=== PATIENT | male | born 1960 | race Caucasian/White ===

== ENCOUNTER 2017-06-09 06:51 | Inpatient (IN) | payer MEDICARE, MEDICAID ==
[~2017-06-09 06:51] MED LIST: Bisacodyl 5 MG Tab PO PRN; Cyclobenzaprine 10 MG Tab PO PRN; Ketorolac 15 MG/ML SDV IVPUSH PRN; Lactated Ringers 1,000 ML IV SCH; Lidocaine 1%/Sod Bicarbonate in NS 8.4% 1 ML Syringe IV PRN; Magnesium Hydroxide 400 MG/5 ML Susp 30 ML Cup PO PRN; Morphine 2 MG/ML Syringe IVPUSH PRN; Naloxone 0.4 MG/ML SDV IVPUSH PRN; Ondansetron 4 MG/2 ML SDV IVPUSH PRN; Sennosides 8.6 MG Tab PO PRN; Sodium Chloride 0.9% 10 ML Syringe FLUSH PRN; diphenhydrAMINE 50 MG/ML SDV IVPUSH PRN
[2017-06-09] MEDS ORDERED: fentaNYL 100 MCG/2 ML SDV ONE (07:31)
[2017-06-09] MEDS ORDERED: Propofol 200 MG/20 ML SDV ONE ×5 (07:31→10:48)
[2017-06-09] MEDS ORDERED: Lidocaine 1% 4 ML ONE (07:32)
[2017-06-09] MEDS ORDERED: Midazolam 1 MG/ML 2 ML SDV ONE ×2 (07:32→08:59)
--- NOTE | 2017-06-09 08:02 | PCM.PREANE ---
Preanesthetic Assessment - Anesthesia/Transfusion/Family Hx Anesthesia History: Prior Anesthesia Without Reaction Family History of Anesthesia Reaction: No Transfusion History: No Prior Transfusion(s) Intubation History: Unknown - Review of Systems General: No Symptoms Pulmonary: No Symptoms, Other (Asthma has not used inhaler in about a month) Cardiovascular: No Symptoms Gastrointestinal: No Symptoms Neurological: Pre-Existing Deficit (OSAGE), Other (Pain in right leg, epidural steroid injection much better now. ) Other: Reports: None (Sleep Apnea with CPAP use.) - Physical Assessment NPO Status Date: 06/09/17 NPO Status Time: 05:10 (Meds with water) Pulse: 87 O2 Sat by Pulse Oximetry: 97 Respiratory Rate: 16 Blood Pressure: 131/84 Temperature: 98.0 C Weight: 92 kg ASA Class: 2 Mental Status: Alert & Oriented x3 Airway Class: Mallampati = 1 Dentition: Reports: Broken Tooth/Teeth (Teeth appear worn down, yellow, grinds teeth.) Thyro-Mental Finger Breadths: 2 Mouth Opening Finger Breadths: 3 ROM/Head Extension: Full Lungs: Clear to Auscultation, Normal Respiratory Effort Cardiovascular: Regular Rate, Regular Rhythm - Lab Values: Laboratory Last Values WBC 6.71 K/mm3 (4.23-9.07) 06/09/17 07:45 RBC 5.20 M/mm3 (4.63-6.08) 06/09/17 07:45 Hgb 15.0 gm/L (13.7-17.5) 06/09/17 07:45 Hct 43.6 % (40.1-51.0) 06/09/17 07:45 MCV 83.8 fl (79.0-92.2) 06/09/17 07:45 MCH 28.8 pg (25.7-32.2) 06/09/17 07:45 MCHC 34.4 g/dl (32.2-35.5) 06/09/17 07:45 RDW Std Deviation 42.2 fL (35.1-43.9) 06/09/17 07:45 Plt Count 309 K/mm3 (163-337) 06/09/17 07:45 MPV 8.6 fl (9.4-12.3) L 06/09/17 07:45 Neut % (Auto) 47.9 % (34.0-67.9) 06/09/17 07:45 Lymph % (Auto) 36.7 % (21.8-53.1) 06/09/17 07:45 [place] % (Auto) 9.5 % (5.3-12.2) 06/09/17 07:45 Eos % (Auto) 5.1 (0.8-7.0) 06/09/17 07:45 Baso % (Auto) 0.7 % (0.1-1.2) 06/09/17 07:45 Neut # (Auto) 3.21 K/mm3 (1.78-5.38) 06/09/17 07:45 Lymph # (Auto) 2.46 K/mm3 (1.32-3.57) 06/09/17 07:45 [place] # (Auto) 0.64 K/mm3 (0.30-0.82) 06/09/17 07:45 Eos # (Auto) 0.34 K/mm3 (0.04-0.54) 06/09/17 07:45 Baso # (Auto) 0.05 K/mm3 (0.01-0.08) 06/09/17 07:45 MRSA (PCR) Negative 05/27/17 11:05 - Allergies Allergies/Adverse Reactions: Allergies Allergy/AdvReac Type Severity Reaction Status Date / Time No Known Allergies Allergy Verified 06/06/17 16:10 PreAnesthesia Questionnaire HEENT History: Reports: Hard of Hearing, Impaired Vision, Other (See Below) Other HEENT History: bilateral impacted cerumen, hearing loss, weras glasses, has hearing aids Cardiovascular History: Reports: High Cholesterol, Hypertension Respiratory History: Reports: Asthma, Sleep Apnea Gastrointestinal History: Reports: None Genitourinary History: Reports: None 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: Reports: 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 Musculoskeletal History: Reports: Other (See Below) Other Musculoskeletal History: left knee pain, restless leg syndrome, left plantar fasciitis, rib sprain Neurological History: Reports: Speech Problems Psychiatric History: Reports: Anxiety, Depression, Other (See Below) Other Psychiatric History: insomnia Endocrine/Metabolic History: Reports: None Hematologic History: Reports: None Immunologic History: Reports: None Oncologic (Cancer) History: Reports: None Dermatologic History: Reports: None - Past Surgical History Head Surgeries/Procedures: Reports: None HEENT Surgical History: Reports: None Cardiovascular Surgical History: Reports: None Respiratory Surgical History: Reports: None GI Surgical History: Reports: Colonoscopy Female Surgical History: Reports: None Male Surgical History: Reports: None Endocrine Surgical History: Reports: None Musculoskeletal Surgical History: Reports: Hip Replacement, Other (See Below) Other Musculoskeletal Surgeries/Procedures:: knee surgery, shoulder surgery Oncologic Surgical History: Reports: None - SUBSTANCE USE Smoking Status *Q: Never Smoker Tobacco Use Within Last Twelve Months:  Second Hand Smoke Exposure: No Recreational Drug Use History: No - HOME MEDS Home Medications: Home Meds Rosuvastatin [Crestor] 10 mg PO DAILY 07/04/15 [History] Lisinopril/Hydrochlorothiazide [Lisinopril-Hctz 20-25 mg Tab] 1 tab PO DAILY [History] Albuterol [Ventolin HFA] 1 - 2 puff INH Q6H PRN 06/06/17 [History] Aspirin [Halfprin] 81 mg PO DAILY 06/06/17 [History] Cholecalciferol (Vitamin D3) [Vitamin D3] 1,000 unit PO DAILY 06/06/17 [History] DULoxetine [Cymbalta] 60 mg PO DAILY 06/06/17 [History] Escitalopram [Lexapro] 20 mg PO DAILY 06/06/17 [History] Fish Oil/[place]-3 Fatty Acids [Fish Oil 1,000 MG] 2 g PO DAILY 06/06/17 [History] Fluticasone Propionate [Flonase] 2 spray NASBOTH DAILY 06/06/17 [History] Multivitamin [Poly-Vitamin] 1 tab PO DAILY 06/06/17 [History] Naproxen [Naproxen] 500 mg PO BID PRN 06/06/17 [History] Pramipexole Di-HCl [Mirapex] 0.25 mg PO BEDTIME 06/06/17 [History] traZODone HCl [Trazodone HCl] 100 mg PO BEDTIME 06/06/17 [History] - CURRENT (IN HOUSE) MEDS Current Meds: Current Medications Bisacodyl (Dulcolax) 5 mg PO DAILY PRN PRN Reason: Constipation Cyclobenzaprine HCl (Flexeril) 10 mg PO TID PRN PRN Reason: Spasms Diphenhydramine HCl (Benadryl) 25 mg IVPUSH Q4H PRN PRN Reason: Nausea Docusate Sodium (Colace) 100 mg PO BID [facility] Famotidine (Pepcid) 20 mg PO Q12H [facility] Lactated Ringer's (Ringers, Lactated) 1,000 mls @ 125 mls/hr IV ASDIRECTED [facility] Cefazolin Sodium/Dextrose 2 gm (/ Premix) 50 mls @ 100 mls/hr IV Q8H [facility] Stop: 06/09/17 23:14 Ketorolac Tromethamine (Toradol) 15 mg IVPUSH Q6H PRN PRN Reason: Pain Lidocaine/Sodium Bicarbonate (Buffered Lidocaine 1% In Ns 8.4%) 0.25 ml IV ONETIME PRN PRN Reason: Prior to IV Start Magnesium Hydroxide (Milk Of Magnesia) 30 ml PO BID PRN PRN Reason: Constipation Morphine Sulfate (Morphine) 2 mg IVPUSH Q2H PRN PRN Reason: Breakthrough Pain Naloxone HCl (Narcan) 0.1 mg IVPUSH Q5M PRN PRN Reason: Oversedation Ondansetron HCl (Zofran) 4 mg IVPUSH Q6H PRN PRN Reason: Nausea/Vomiting Oxycodone/Acetaminophen (Percocet 325-5 Mg) 1 - 2 tab PO Q4H PRN PRN Reason: Pain Rivaroxaban (Xarelto) 10 mg PO DAILY SADIE Senna (Senna) 8.6 mg PO BID PRN PRN Reason: Constipation Sodium Chloride (Saline Flush) 10 ml FLUSH ASDIRECTED PRN PRN Reason: Keep Vein Open Discontinued Medications Morphine Sulfate 8 mg/Epinephrine HCl 0.3 mg/Cefuroxime Sodium 750 mg/Ketorolac Tromethamine 30 mg/Sodium Chloride 27.9 ml 0 mg .XX ONETIME ONE Stop: 06/09/17 06:32 Fentanyl (Sublimaze) Confirm Administered Dose 100 mcg .ROUTE .STK-MED ONE Stop: 06/09/17 07:32 Lidocaine HCl (Xylocaine-Mpf 1%) Confirm Administered Dose 4 mls @ as directed .ROUTE .STK-MED ONE Stop: 06/09/17 07:33 Midazolam HCl (Versed 1 Mg/Ml) Confirm Administered Dose 2 mg .ROUTE .STK-MED ONE Stop: 06/09/17 07:33 Propofol (Diprivan 20 Ml) Confirm Administered Dose 600 mg .ROUTE .STK-MED ONE Stop: 06/09/17 07:32 Propofol (Diprivan 20 Ml) Confirm Administered Dose 200 mg .ROUTE .STK-MED ONE Stop: 06/09/17 07:33
[2017-06-09] MEDS ORDERED: Morphine PF 1 MG/ML Amp ONE (08:32)
[2017-06-09] MEDS ORDERED: Phenylephrine/Normal Saline 100 MCG/ML 10 ML Syringe ONE (09:41)
[2017-06-09] MEDS: Bupivacaine 0.5% 30 ML SDV ONE ×2 (09:41→10:34)
[2017-06-09] MEDS: Iodine/Sodium Iodide 2% Tincture 30 ML Bottle ONE ×2 (09:43→10:17)
[2017-06-09] MEDS: ceFAZolin 1 GM Vial ONE ×2 (09:43→10:19)
[2017-06-09] MEDS: Vancomycin 1 GM SDV ONE ×2 (09:44→10:46)
[2017-06-09] MEDS: Morphine 8 MG, EPINEPHrine 0.3 MG, Cefuroxime 750 MG, Ketorolac 30 MG, Sodium Chloride ... ONE ×10 (09:44→10:35)
[2017-06-09] MEDS ORDERED: diphenhydrAMINE 50 MG/ML SDV IVPUSH PRN (10:04)
[2017-06-09] MEDS ORDERED: fentaNYL 100 MCG/2 ML SDV IVPUSH PRN (10:04)
[2017-06-09] MEDS ORDERED: HYDROmorphone 0.5 MG/0.5 ML Syringe IVPUSH PRN (10:04)
[2017-06-09] MEDS ORDERED: Ondansetron 4 MG/2 ML SDV IVPUSH PRN (10:04)
[2017-06-09] MEDS ORDERED: Lactated Ringers 3,000 ML ONE (11:03)
--- NOTE | 2017-06-09 11:24 | PCM.POSTAN ---
POST ANESTHESIA ASSESSMENT - MENTAL STATUS Mental Status: Alert, Oriented - VITAL SIGNS Pulse Rate: 86 SaO2: 94 Resp Rate: 19 Blood Pressure: 89/68 Temperature: 36.2 C - RESPIRATORY Respiratory Status: Respiratory Rate WNL, Airway Patent, O2 Saturation Stable, Supplemental Oxygen - CARDIOVASCULAR CV Status: Pulse Rate WNL, Blood Pressure Stable - GASTROINTESTINAL GI Status: No Symptoms - PAIN Pain Score: 0 - POST OP HYDRATION Hydration Status: Adequate & Stable
[2017-06-09] MEDS ORDERED: Albuterol 90 MCG/6.7 GM Inhaler INH PRN (11:46)
[2017-06-09] MEDS ORDERED: Albuterol 6.7 GM Inhaler INH PRN (12:15)
--- NOTE | 2017-06-09 12:50 | CR ---
Left knee: AP and lateral views of the left knee were obtained. Comparison: Prior left knee radiograph of 10/07/16. Left knee prosthesis is seen. Components are aligned. Soft tissue tissue air is noted from the surgical procedure. Stable screw is noted within the distal femur. No acute fracture or other abnormality is seen. Impression: 1. Satisfactory appearance of recently placed left knee prosthesis. Diagnostic code #2
[2017-06-09] MEDS: Acetaminophen/oxyCODONE 325-5 MG Tab PO PRN ×2 (16:23→21:03)
[2017-06-09] MEDS: ceFAZolin 2 GM in Premix Bag 1 BAG IV SCH (16:24)
--- NOTE | 2017-06-09 18:49 | PCM.CONS ---
H&P History of Present Illness - General Date of Service: 06/09/17 Admit Problem/Dx: Admission Diagnosis/Problem Admission Diagnosis/Problem Osteoarthritis of knee Source of Information: Patient, RN, RN Notes Reviewed, Other (Surgical notes ) History Limitations: Reports: No Limitations - History of Present Illness Initial Comments - Free Text/Narative: Sohan Padron is a 56 yo male patient of Dr. Smith who is post-operative day 0 of left total knee arthroplasty. Hospital medicine was consulted for post- operative medical care. At this time he is resting comfortably in the chair. Pain is 6/10 but controlled. He denies any chest pain, shortness of breath, palpitations, nausea, or vomiting. He is complaining of post-operative pruritus He carries a history of: Hearing loss, impaired vision, HLD, HTN, asthma, sleep apnea, left knee pain, restless leg syndrome, anxiety, depression , insomnia. He was never a smoker. His code status is full code. His primary care provider is Alyse Espinal, nurse practitioner here at [facility]. Left Knee Pain Score (Numeric/FACES): 6 - Related Data Allergies/Adverse Reactions: Allergies Allergy/AdvReac Type Severity Reaction Status Date / Time No Known Allergies Allergy Verified 06/06/17 16:10 Home Medications: Home Meds Rosuvastatin [Crestor] 10 mg PO DAILY 07/04/15 [History] Lisinopril/Hydrochlorothiazide [Lisinopril-Hctz 20-25 mg Tab] 1 tab PO DAILY [History] Albuterol [Ventolin HFA] 1 - 2 puff INH Q6H PRN 06/06/17 [History] Aspirin [Halfprin] 81 mg PO DAILY 06/06/17 [History] Cholecalciferol (Vitamin D3) [Vitamin D3] 5,000 unit PO DAILY 06/06/17 [History] DULoxetine [Cymbalta] 60 mg PO DAILY 06/06/17 [History] Escitalopram [Lexapro] 20 mg PO DAILY 06/06/17 [History] Fish Oil/[place]-3 Fatty Acids [Fish Oil 1,000 MG] 2 g PO DAILY 06/06/17 [History] Multivitamin [Poly-Vitamin] 1 tab PO DAILY 06/06/17 [History] Naproxen [Naproxen] 500 mg PO BID PRN 06/06/17 [History] Pramipexole Di-HCl [Mirapex] 0.25 mg PO BEDTIME 06/06/17 [History] traZODone HCl [Trazodone HCl] 100 mg PO BEDTIME 06/06/17 [History] Past Medical History HEENT History: Reports: Hard of Hearing, Impaired Vision, Other (See Below) Other HEENT History: bilateral impacted cerumen, hearing loss, weras glasses, has hearing aids Cardiovascular History: Reports: High Cholesterol, Hypertension Respiratory History: Reports: Asthma, Sleep Apnea Gastrointestinal History: Reports: None Genitourinary History: Reports: None 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 Musculoskeletal History: Reports: Other (See Below) Other Musculoskeletal History: left knee pain, restless leg syndrome, left plantar fasciitis, rib sprain Neurological History: Reports: Speech Problems Psychiatric History: Reports: Anxiety, Depression, Other (See Below) Other Psychiatric History: insomnia Endocrine/Metabolic History: Reports: None Hematologic History: Reports: None Immunologic History: Reports: None Oncologic (Cancer) History: Reports: None Dermatologic History: Reports: None - Infectious Disease History Infectious Disease History: Reports: None Other Infectious Disease History: Pt. cannot remember - Past Surgical History HEENT Surgical History: Reports: None Cardiovascular Surgical History: Reports: None Respiratory Surgical History: Reports: None GI Surgical History: Reports: Colonoscopy Male Surgical History: Reports: None Endocrine Surgical History: Reports: None Neurological Surgical History: Reports: None Musculoskeletal Surgical History: Reports: Hip Replacement, Other (See Below) Other Musculoskeletal Surgeries/Procedures:: knee surgery L. , shoulder surgery R. , L. hip replacement Oncologic Surgical History: Reports: None Social & Family History - Family History Family Medical History: Noncontributory - Tobacco Use Smoking Status *Q: Never Smoker Years of Tobacco use: 2 Packs/Tins Daily: 2.5 Used Tobacco, but Quit: Yes Month Tobacco Last Used: unk quit date Second Hand Smoke Exposure: No - Caffeine Use Caffeine Use: Reports: Coffee - Recreational Drug Use Recreational Drug Use: No Recreational Drug Use Frequency: Rarely H&P Review of Systems - Review of Systems: Review Of Systems: See Below General: Reports: No Symptoms. Denies: Fever, Chills, Malaise, Weakness, Fatigue HEENT: Reports: No Symptoms. Denies: Headaches, Hearing Changes, Rhinitis, Post Nasal Drip, Sore Throat, Visual Changes Pulmonary: Reports: No Symptoms. Denies: Shortness of Breath, Wheezing Cardiovascular: Reports: No Symptoms. Denies: Chest Pain, Palpitations, Dyspnea on Exertion Gastrointestinal: Reports: No Symptoms. Denies: Abdominal Pain, Constipation, Diarrhea, Nausea, Vomiting Genitourinary: Reports: No Symptoms. Denies: Dysuria, Frequency, Burning, Pain , Urgency Musculoskeletal: Reports: No Symptoms Skin: Reports: Pruritis. Denies: Cyanosis, Jaundice, Mottled, Rash, Erythema Psychiatric: Reports: No Symptoms Neurological: Reports: No Symptoms Hematologic/Lymphatic: Reports: No Symptoms Immunologic: Reports: No Symptoms Exam - Exam Exam: See Below - Vital Signs Vital Signs: Last Vital Signs Temp 97.6 F 06/09/17 17:30 Pulse 88 06/09/17 14:19 Resp 18 06/09/17 18:00 BP 124/77 06/09/17 17:30 Pulse Ox 96 06/09/17 17:30 Weight: 203 lb - Exam Quality Assessment: DVT Prophylaxis General: Alert, Oriented, Cooperative. No: Mild Distress HEENT: Conjunctiva Clear, EACs Clear, EOMI, Hearing Intact, Mucosa Moist & [place] , Nares Patent, Normal Nasal Septum, Posterior Pharynx Clear, PERRLA Neck: Supple, Trachea Midline. No: JVD, Thyromegaly Lungs: Clear to Auscultation, Normal Respiratory Effort Cardiovascular: Regular Rate GI/Abdominal Exam: Normal Bowel Sounds, Soft, Non-Tender, No Organomegaly, No Distention, No Abnormal Bruit, No Mass, Pelvis Stable (Male) Exam: Deferred Rectal (Males) Exam: Deferred Back Exam: Normal Inspection, Full Range of Motion, NT Extremities: No Pedal Edema, Normal Capillary Refill, Other (ALEX bandage in place on left leg. Bandage is dry and intact. Cooling pack in place.) Peripheral Pulses: 2+: Radial (L), Radial (R), Posterior Tibial (L), Posterior Tibial (R), Dorsalis Pedis (L), Dorsalis Pedis (R) Skin: Warm, Dry, Intact Neurological: Cranial Nerves Intact (Grossly) Neuro Extensive - Mental Status: Alert, Oriented x3, Normal Mood/Affect, Normal Cognition, Memory Intact Neuro Extensive - Motor, Sensory, Reflexes: CN II-XII Intact (Grossly) Psychiatric: Alert, Normal Affect, Normal Mood - Patient Data Lab Results Last 24 hrs: Laboratory Results - last 24 hr 06/09/17 Range/Units 07:45 WBC 6.71 (4.23-9.07) K/mm3 RBC 5.20 (4.63-6.08) M/mm3 Hgb 15.0 (13.7-17.5) gm/L Hct 43.6 (40.1-51.0) % MCV 83.8 (79.0-92.2) fl MCH 28.8 (25.7-32.2) pg MCHC 34.4 (32.2-35.5) g/dl RDW Std Deviation 42.2 (35.1-43.9) fL Plt Count 309 (163-337) K/mm3 MPV 8.6 L (9.4-12.3) fl Neut % (Auto) 47.9 (34.0-67.9) % Lymph % (Auto) 36.7 (21.8-53.1) % [place] % (Auto) 9.5 (5.3-12.2) % Eos % (Auto) 5.1 (0.8-7.0) Baso % (Auto) 0.7 (0.1-1.2) % Neut # (Auto) 3.21 (1.78-5.38) K/mm3 Lymph # (Auto) 2.46 (1.32-3.57) K/mm3 [place] # (Auto) 0.64 (0.30-0.82) K/mm3 Eos # (Auto) 0.34 (0.04-0.54) K/mm3 Baso # (Auto) 0.05 (0.01-0.08) K/mm3 Result Diagrams: 06/09/17 07:45 Consult PN Assessment/Plan POD#: 0 Procedures: Procedures ASSAY OF PREALBUMIN (05/23/17) ASSAY THYROID STIM HORMONE (04/22/17) CHEST X-RAY 2VW FRONTAL&LATL (05/23/17) COMPLETE CBC AUTOMATED (04/22/17) COMPREHEN METABOLIC PANEL (05/23/17) CT SOFT TISSUE NECK W/DYE (12/21/13) EMERGENCY DEPT VISIT (08/27/15) EXTREMITY STUDY (07/04/15) LIPID PANEL (04/22/17) MRI JNT OF LWR EXTRE W/O DYE (01/08/17) OFFICE/OUTPATIENT VISIT EST (08/09/16) PROTHROMBIN TIME (05/23/17) ROUTINE VENIPUNCTURE (05/23/17) STREP A AG IA (08/09/16) THROMBOPLASTIN TIME PARTIAL (05/23/17) URINE CULTURE/COLONY COUNT (06/13/15) X-RAY EXAM HIP UNI 2-3 VIEWS (08/16/16) X-RAY EXAM OF ELBOW (08/16/16) X-RAY EXAM OF KNEE 3 (10/07/16) (1) S/P total knee arthroplasty SNOMED Code(s): 2557898427191, 4694555870874 Code(s): Z96.659 - PRESENCE OF UNSPECIFIED ARTIFICIAL KNEE JOINT Priority: High Current Visit: Yes Qualifiers: Laterality: left Qualified Code(s): Z96.652 - Presence of left artificial knee joint (2) Osteoarthritis SNOMED Code(s): 992129176 Code(s): M19.90 - UNSPECIFIED OSTEOARTHRITIS, UNSPECIFIED SITE Priority: High Current Visit: Yes Qualifiers: Osteoarthritis location: knee Osteoarthritis type: primary Laterality: left Qualified Code(s): M17.12 - Unilateral primary osteoarthritis, left knee (3) HLD (hyperlipidemia) SNOMED Code(s): 56669324 Code(s): E78.5 - HYPERLIPIDEMIA, UNSPECIFIED Priority: Low Current Visit : No Qualifiers: Hyperlipidemia type: unspecified Qualified Code(s): E78.5 - Hyperlipidemia , unspecified (4) HTN (hypertension) SNOMED Code(s): 00182843 Code(s): I10 - ESSENTIAL (PRIMARY) HYPERTENSION Priority: Low Current Visit: Yes Qualifiers: Hypertension type: essential hypertension Qualified Code(s): I10 - Essential (primary) hypertension (5) JODEE (obstructive sleep apnea) SNOMED Code(s): 83939850 Code(s): G47.33 - OBSTRUCTIVE SLEEP APNEA (ADULT) (PEDIATRIC) Priority: Medium Current Visit: Yes (6) Restless leg syndrome SNOMED Code(s): 00322658 Code(s): G25.81 - RESTLESS LEGS SYNDROME Priority: Low Current Visit: Yes (7) Asthma SNOMED Code(s): 769240548 Code(s): J45.909 - UNSPECIFIED ASTHMA, UNCOMPLICATED Priority: Low Current Visit: Yes Qualifiers: Asthma severity: unspecified severity Asthma persistence: intermittent Asthma complication type: unspecified Qualified Code(s): J45.20 - Mild intermittent asthma, uncomplicated (8) Anxiety SNOMED Code(s): 77501826 Code(s): F41.9 - ANXIETY DISORDER, UNSPECIFIED Priority: Low Current Visit: No (9) Depression SNOMED Code(s): 07978036 Code(s): F32.9 - MAJOR DEPRESSIVE DISORDER, SINGLE EPISODE, UNSPECIFIED Priority: Low Current Visit: No Qualifiers: Depression Type: other depression Qualified Code(s): F32.89 - Other specified depressive episodes (10) Insomnia SNOMED Code(s): 387438689 Code(s): G47.00 - INSOMNIA, UNSPECIFIED Priority: Low Current Visit: Yes Qualifiers: Insomnia type: unspecified Qualified Code(s): G47.00 - Insomnia, unspecified Problem List Initiated/Reviewed/Updated: Yes Plan: I/P: Acute: S/P Left total knee arthroplasty - post-operative day 0 -DVT prophylaxis and pain management per primary care team -PT/OT -IS/RT -Monitor oxygen saturation -Titrate oxygen as needed -Vital signs stable Osteoarthritis of Left Knee -Pain management per primary care team Post-operative pruritus- generalized -25mg Benadryl IVP now -monitor Chronic: Hard of hearing Impaired vision Sleep apnea with CPAP use - has here with him HLD HTN - stable Restless leg syndrome Anxiety - stable Depression - stable Plan: SW/CM for discharge planning GI prophylaxis Home medications as indicated Other orders as listed above Routine AM labs He is a full code. His PCP is Alyse Espinal, nurse practitioner here at [facility]. Thank you for allowing us to participate in the care of this patient!! Requesting Provider: Dr. Smith Date Consult Requested: 06/09/17 Reason for Consult: Post-operative medical management Patient History Reviewed: Yes Admission H&P Reviewed: Yes
[2017-06-09] MEDS ORDERED: diphenhydrAMINE 50 MG/ML SDV IVPUSH ONE ×2 (19:14→21:41)
[2017-06-09] MEDS ORDERED: Pramipexole 0.25 MG Tab PO SCH (21:00)
[2017-06-09] MEDS ORDERED: traZODone 50 MG Tab PO SCH (21:00)
[2017-06-09] MEDS: Docusate Sodium 100 MG Cap PO SCH (21:03)
[2017-06-09] MEDS: Famotidine 20 MG Tab PO SCH (21:04)
[2017-06-10] MEDS: ceFAZolin 2 GM in Premix Bag 1 BAG IV SCH ×2 (00:26→10:00)
--- NOTE | 2017-06-10 07:26 | PCM.CONSN ---
- General Info Date of Service: 06/10/17 Admission Dx/Problem (Free Text): Admission Diagnosis/Problem Admission Diagnosis/Problem Osteoarthritis of knee POD #[address] Smith. Doing well, no nausea. Pain under good control. Up and ambulatory with PT this morning. Functional Status: Reports: Pain Controlled, Tolerating Diet, Ambulating, Urinating, Incentive Spirometry - Review of Systems General: Reports: No Symptoms HEENT: Reports: No Symptoms Pulmonary: Reports: No Symptoms Cardiovascular: Reports: No Symptoms Gastrointestinal: Reports: No Symptoms Genitourinary: Reports: No Symptoms Musculoskeletal: Reports: Leg Pain Skin: Reports: No Symptoms Neurological: Reports: No Symptoms Psychiatric: Reports: No Symptoms - Patient Data Vitals - Most Recent: Last Vital Signs Temp 98.8 F 06/09/17 23:14 Pulse 113 H 06/09/17 23:14 Resp 14 06/10/17 03:00 BP 128/81 06/10/17 05:31 Pulse Ox 95 06/09/17 23:14 Weight - Most Recent: 216 lb 6.4 oz I&O - Last 24 Hours: Intake & Output 06/09/17 06/10/17 06/10/17 22:59 06:59 14:59 Intake Total 980 1550 Output Total 150 Balance 830 1550 Lab Results Last 24 Hours: Laboratory Results - last 24 hr 06/09/17 Range/Units 07:45 WBC 6.71 (4.23-9.07) K/mm3 RBC 5.20 (4.63-6.08) M/mm3 Hgb 15.0 (13.7-17.5) gm/L Hct 43.6 (40.1-51.0) % MCV 83.8 (79.0-92.2) fl MCH 28.8 (25.7-32.2) pg MCHC 34.4 (32.2-35.5) g/dl RDW Std Deviation 42.2 (35.1-43.9) fL Plt Count 309 (163-337) K/mm3 MPV 8.6 L (9.4-12.3) fl Neut % (Auto) 47.9 (34.0-67.9) % Lymph % (Auto) 36.7 (21.8-53.1) % [place] % (Auto) 9.5 (5.3-12.2) % Eos % (Auto) 5.1 (0.8-7.0) Baso % (Auto) 0.7 (0.1-1.2) % Neut # (Auto) 3.21 (1.78-5.38) K/mm3 Lymph # (Auto) 2.46 (1.32-3.57) K/mm3 [place] # (Auto) 0.64 (0.30-0.82) K/mm3 Eos # (Auto) 0.34 (0.04-0.54) K/mm3 Baso # (Auto) 0.05 (0.01-0.08) K/mm3 Med Orders - Current: Current Medications Albuterol (Proventil Hfa) 0 gm INH Q6H PRN PRN Reason: Shortness of Breath Bisacodyl (Dulcolax) 5 mg PO DAILY PRN PRN Reason: Constipation Cholecalciferol (Vitamin D3) 5,000 units PO DAILY [facility] Citalopram Hydrobromide (Celexa) 40 mg PO DAILY [facility] Cyclobenzaprine HCl (Flexeril) 10 mg PO TID PRN PRN Reason: Spasms Last Admin: 06/09/17 23:09 Dose: 10 mg Diphenhydramine HCl (Benadryl) 25 mg IVPUSH Q4H PRN PRN Reason: Nausea Last Admin: 06/09/17 19:21 Dose: 25 mg Docusate Sodium (Colace) 100 mg PO BID [facility] Last Admin: 06/09/17 21:03 Dose: 100 mg Duloxetine HCl (Cymbalta) 60 mg PO DAILY [facility] Famotidine (Pepcid) 20 mg PO Q12H [facility] Last Admin: 06/09/17 21:04 Dose: 20 mg Hydrochlorothiazide (Hydrochlorothiazide) 25 mg PO DAILY [facility] Cefazolin Sodium/Dextrose 2 gm (/ Premix) 50 mls @ 100 mls/hr IV Q8H [facility] Stop: 06/10/17 08:59 Last Admin: 06/10/17 00:26 Dose: 100 mls/hr Ketorolac Tromethamine (Toradol) 15 mg IVPUSH Q6H PRN PRN Reason: Pain Lisinopril (Prinivil) 20 mg PO DAILY [facility] Magnesium Hydroxide (Milk Of Magnesia) 30 ml PO BID PRN PRN Reason: Constipation Morphine Sulfate (Morphine) 2 mg IVPUSH Q2H PRN PRN Reason: Breakthrough Pain Naloxone HCl (Narcan) 0.1 mg IVPUSH Q5M PRN PRN Reason: Oversedation Ondansetron HCl (Zofran) 4 mg IVPUSH Q6H PRN PRN Reason: Nausea/Vomiting Oxycodone/Acetaminophen (Percocet 325-5 Mg) 1 - 2 tab PO Q4H PRN PRN Reason: Pain Last Admin: 06/10/17 05:30 Dose: 2 tab Pramipexole Dihydrochloride (Mirapex) 0.25 mg PO BEDTIME [facility] Last Admin: 06/09/17 21:04 Dose: 0.25 mg Rivaroxaban (Xarelto) 10 mg PO DAILY [facility] Rosuvastatin Calcium (Crestor) 10 mg PO DAILY [facility] Senna (Senna) 8.6 mg PO BID PRN PRN Reason: Constipation Sodium Chloride (Saline Flush) 10 ml FLUSH ASDIRECTED PRN PRN Reason: Keep Vein Open Trazodone HCl (Trazodone) 100 mg PO BEDTIME [facility] Last Admin: 06/09/17 21:03 Dose: 100 mg Discontinued Medications Bupivacaine HCl (Marcaine 0.5%) Confirm Administered Dose 30 ml .ROUTE .STK-MED ONE Stop: 06/09/17 08:44 Last Admin: 06/09/17 10:34 Dose: 30 ml Cefazolin Sodium (Ancef) Confirm Administered Dose 2 gm .ROUTE .STK-MED ONE Stop: 06/09/17 08:21 Last Admin: 06/09/17 10:19 Dose: 2 gm Morphine Sulfate 8 mg/Epinephrine HCl 0.3 mg/Cefuroxime Sodium 750 mg/Ketorolac Tromethamine 30 mg/Sodium Chloride 27.9 ml 0 mg .XX ONETIME ONE Stop: 06/09/17 06:32 Last Admin: 06/09/17 10:35 Dose: 788.3 mg Diphenhydramine HCl (Benadryl) 25 mg IVPUSH Q6H PRN PRN Reason: itching Stop: 06/09/17 18:00 Diphenhydramine HCl (Benadryl) 25 mg IVPUSH ONETIME ONE Stop: 06/09/17 19:15 Last Admin: 06/09/17 19:32 Dose: Not Given Diphenhydramine HCl (Benadryl) 25 mg IVPUSH ONETIME ONE Stop: 06/09/17 21:42 Fentanyl (Sublimaze) Confirm Administered Dose 100 mcg .ROUTE .STK-MED ONE Stop: 06/09/17 07:32 Fentanyl (Sublimaze) 50 mcg IVPUSH Q5M PRN PRN Reason: pain Stop: 06/09/17 18:00 Flunisolide (Nasalide Nasal [place]) 0 ml NASBOTH BID [facility]AD[facility] Hydromorphone HCl (Dilaudid) 0.5 mg IVPUSH Q15M PRN PRN Reason: Pain (severe 7-10) Stop: 06/09/17 18:00 Lactated Ringer's (Ringers, Lactated) 1,000 mls @ 125 mls/hr IV ASDIRECTED SADIE Last Admin: 06/09/17 07:42 Dose: 125 mls/hr Lidocaine HCl (Xylocaine-Mpf 1%) Confirm Administered Dose 4 mls @ as directed .ROUTE .STK-MED ONE Stop: 06/09/17 07:33 Lactated Ringer's (Ringers, Lactated) Confirm Administered Dose 3,000 mls @ as directed .ROUTE .STK-MED ONE Stop: 06/09/17 11:04 Iodine (Iodine 2% Mild Tincture) Confirm Administered Dose 30 ml .ROUTE .STK- MED ONE Stop: 06/09/17 08:22 Last Admin: 06/09/17 10:17 Dose: 18 ml Lidocaine/Sodium Bicarbonate (Buffered Lidocaine 1% In Ns 8.4%) 0.25 ml IV ONETIME PRN PRN Reason: Prior to IV Start Last Admin: 06/09/17 07:40 Dose: 0.25 ml Midazolam HCl (Versed 1 Mg/Ml) Confirm Administered Dose 2 mg .ROUTE .STK-MED ONE Stop: 06/09/17 07:33 Midazolam HCl (Versed 1 Mg/Ml) Confirm Administered Dose 2 mg .ROUTE .STK-MED ONE Stop: 06/09/17 09:00 Morphine Sulfate (Duramorph Pf) Confirm Administered Dose 1 mg .ROUTE .STK-MED ONE Stop: 06/09/17 08:33 Ondansetron HCl (Zofran) 4 mg IVPUSH ONETIME PRN PRN Reason: Nausea/Vomiting Stop: 06/09/17 18:00 Phenylephrine HCl (Phenylephrine In Ns 100 Mcg/Ml) Confirm Administered Dose 1 mg .ROUTE .STK-MED ONE Stop: 06/09/17 09:42 Propofol (Diprivan 20 Ml) Confirm Administered Dose 600 mg .ROUTE .STK-MED ONE Stop: 06/09/17 07:32 Propofol (Diprivan 20 Ml) Confirm Administered Dose 200 mg .ROUTE .STK-MED ONE Stop: 06/09/17 07:33 Propofol (Diprivan 20 Ml) Confirm Administered Dose 200 mg .ROUTE .STK-MED ONE Stop: 06/09/17 10:02 Propofol (Diprivan 20 Ml) Confirm Administered Dose 200 mg .ROUTE .STK-MED ONE Stop: 06/09/17 10:35 Propofol (Diprivan 20 Ml) Confirm Administered Dose 200 mg .ROUTE .STK-MED ONE Stop: 06/09/17 10:49 Tranexamic Acid (Cyklokapron) Confirm Administered Dose 1,000 mg .ROUTE .STK- MED ONE Stop: 06/09/17 08:21 Last Admin: 06/09/17 10:45 Dose: 1,000 mg Vancomycin HCl (Vancomycin) Confirm Administered Dose 1 gm .ROUTE .STK-MED ONE Stop: 06/09/17 08:21 Last Admin: 06/09/17 10:46 Dose: 1 gm - Exam Quality Assessment: DVT Prophylaxis General: Alert, Oriented, Cooperative, No Acute Distress HEENT: Pupils Equal, EOMI, Mucous Membr. Moist/[place] Neck: Supple Lungs: Clear to Auscultation, Normal Respiratory Effort Cardiovascular: Regular Rate, Regular Rhythm GI/Abdominal Exam: Normal Bowel Sounds, Soft, Non-Tender (Male) Exam: Deferred Extremities: Other (fidencio wrap to rt knee, ice, CMS + and = bilat to LE) Peripheral Pulses: 1+: Dorsalis Pedis (L), Dorsalis Pedis (R) Neurological: No New Focal Deficit Psy/Mental Status: Alert, Normal Affect, Normal Mood Consult PN Assessment/Plan POD#: 1 Procedures: Procedures ASSAY OF PREALBUMIN (05/23/17) ASSAY THYROID STIM HORMONE (04/22/17) CHEST X-RAY 2VW FRONTAL&LATL (05/23/17) COMPLETE CBC AUTOMATED (04/22/17) COMPREHEN METABOLIC PANEL (05/23/17) CT SOFT TISSUE NECK W/DYE (12/21/13) EMERGENCY DEPT VISIT (08/27/15) EXTREMITY STUDY (07/04/15) LIPID PANEL (04/22/17) MRI JNT OF LWR EXTRE W/O DYE (01/08/17) OFFICE/OUTPATIENT VISIT EST (08/09/16) PROTHROMBIN TIME (05/23/17) ROUTINE VENIPUNCTURE (05/23/17) STREP A AG IA (08/09/16) THROMBOPLASTIN TIME PARTIAL (05/23/17) URINE CULTURE/COLONY COUNT (06/13/15) X-RAY EXAM HIP UNI 2-3 VIEWS (08/16/16) X-RAY EXAM OF ELBOW (08/16/16) X-RAY EXAM OF KNEE 3 (10/07/16) (1) S/P total knee arthroplasty SNOMED Code(s): 5827769151688, 0290042806968 Code(s): Z96.659 - PRESENCE OF UNSPECIFIED ARTIFICIAL KNEE JOINT Priority: High Current Visit: Yes Qualifiers: Laterality: left Qualified Code(s): Z96.652 - Presence of left artificial knee joint (2) Osteoarthritis SNOMED Code(s): 216638485 Code(s): M19.90 - UNSPECIFIED OSTEOARTHRITIS, UNSPECIFIED SITE Priority: High Current Visit: Yes Qualifiers: Osteoarthritis location: knee Osteoarthritis type: primary Laterality: left Qualified Code(s): M17.12 - Unilateral primary osteoarthritis, left knee (3) HLD (hyperlipidemia) SNOMED Code(s): 38002658 Code(s): E78.5 - HYPERLIPIDEMIA, UNSPECIFIED Priority: Low Current Visit : No Qualifiers: Hyperlipidemia type: unspecified Qualified Code(s): E78.5 - Hyperlipidemia , unspecified (4) HTN (hypertension) SNOMED Code(s): 10095296 Code(s): I10 - ESSENTIAL (PRIMARY) HYPERTENSION Priority: Low Current Visit: Yes Qualifiers: Hypertension type: essential hypertension Qualified Code(s): I10 - Essential (primary) hypertension (5) JODEE (obstructive sleep apnea) SNOMED Code(s): 50252371 Code(s): G47.33 - OBSTRUCTIVE SLEEP APNEA (ADULT) (PEDIATRIC) Priority: Medium Current Visit: Yes (6) Restless leg syndrome SNOMED Code(s): 60172718 Code(s): G25.81 - RESTLESS LEGS SYNDROME Priority: Low Current Visit: Yes (7) Asthma SNOMED Code(s): 909089236 Code(s): J45.909 - UNSPECIFIED ASTHMA, UNCOMPLICATED Priority: Low Current Visit: Yes Qualifiers: Asthma severity: unspecified severity Asthma persistence: intermittent Asthma complication type: unspecified Qualified Code(s): J45.20 - Mild intermittent asthma, uncomplicated Problem List Initiated/Reviewed/Updated: Yes Plan: I/P: S/P Left total knee arthroplasty, POD # 1, Dr. Ivy. - Pain management and DVT prophylax - PT/OT - RT/IS - Hgb 15.0 - VSS Chronic conditions: Continue home meds Hypertension, stable Hyperlipidemia Obstructive sleep apnea Insomnia Other: GI Prophylax CM/SW for DC planning--OK to DC home today from Hospitalist standpoint. Patient is full Code status. PCP is CLEO Luis with [facility] in [place]
[2017-06-10] MEDS: Acetaminophen/oxyCODONE 325-5 MG Tab PO PRN ×2 (08:30→16:31)
[2017-06-10] MEDS ORDERED: DULoxetine 30 MG Cap PO SCH (09:00)
[2017-06-10] MEDS ORDERED: Hydrochlorothiazide 25 MG Tab PO SCH (09:00)
[2017-06-10] MEDS ORDERED: Cholecalciferol (Vitamin D3) 1,000 Unit Tab PO SCH (09:00)
[2017-06-10] MEDS ORDERED: Lisinopril 20 MG Tab PO SCH (09:00)
[2017-06-10] MEDS ORDERED: Citalopram 20 MG Tab PO SCH (09:00)
[2017-06-10] MEDS ORDERED: Rosuvastatin 10 MG Tab PO SCH (09:00)
[2017-06-10] MEDS ORDERED: Rivaroxaban 10 MG Tab PO SCH (09:00)
[2017-06-10] MEDS: Docusate Sodium 100 MG Cap PO SCH (09:04)
[2017-06-10] MEDS: Famotidine 20 MG Tab PO SCH (09:05)
[2017-06-10 12:57] VITALS: BP 118/72
--- NOTE | 2017-06-10 14:43 | PCM.SURGPN ---
- General Info Date of Service: 06/10/17 POD#: 1 Functional Status: Reports: Pain Controlled, Tolerating Diet, Ambulating, Urinating, Incentive Spirometry, Other (The pt has met inpatient therapy goals.) - Patient Data Vitals - Most Recent: Last Vital Signs Temp 98.4 F 06/10/17 11:49 Pulse 92 06/10/17 11:49 Resp 16 06/10/17 12:00 BP 118/72 06/10/17 12:00 Pulse Ox 93 L 06/10/17 12:00 Weight - Most Recent: 216 lb 6.4 oz I&O - Last 24 Hours: Intake & Output 06/09/17 06/10/17 06/10/17 22:59 06:59 14:59 Intake Total 980 1550 Output Total 150 Balance 830 1550 Lab Results Last 24 Hrs: Laboratory Results - last 24 hr 06/10/17 06/10/17 Range/Units 07:50 07:50 WBC 9.15 H (4.23-9.07) K/mm3 RBC 3.99 L (4.63-6.08) M/mm3 Hgb 11.5 L (13.7-17.5) gm/L Hct 34.4 L (40.1-51.0) % MCV 86.2 (79.0-92.2) fl MCH 28.8 (25.7-32.2) pg MCHC 33.4 (32.2-35.5) g/dl RDW Std Deviation 42.8 (35.1-43.9) fL Plt Count 234 (163-337) K/mm3 MPV 8.6 L (9.4-12.3) fl Sodium 135 L (136-145) mEq/L Potassium 4.2 (3.5-5.1) mEq/L Chloride 102 (98-107) mEq/L Carbon Dioxide 26 (21-32) mEq/L Anion Gap 11.2 (5-15) BUN 20 H (7-18) mg/dL Creatinine 0.8 (0.7-1.3) mg/dL Est Cr Clr Drug Dosing 104.33 mL/min Estimated GFR (MDRD) > 60 (>60) mL/min BUN/Creatinine Ratio 25.0 H (14-18) Glucose 164 H (74-106) mg/dL Calcium 8.6 (8.5-10.1) mg/dL Total Bilirubin 1.1 H (0.2-1.0) mg/dL AST 16 (15-37) U/L ALT 24 (16-63) U/L Alkaline Phosphatase 65 (46-116) U/L Total Protein 6.1 L (6.4-8.2) g/dl Albumin 3.0 L (3.4-5.0) g/dl Globulin 3.1 gm/dL Albumin/Globulin Ratio 1.0 (1-2) Med Orders - Current: Current Medications Albuterol (Proventil Hfa) 0 gm INH Q6H PRN PRN Reason: Shortness of Breath Bisacodyl (Dulcolax) 5 mg PO DAILY PRN PRN Reason: Constipation Cholecalciferol (Vitamin D3) 5,000 units PO DAILY [facility] Last Admin: 06/10/17 09:04 Dose: 5,000 units Citalopram Hydrobromide (Celexa) 40 mg PO DAILY [facility] Last Admin: 06/10/17 09:04 Dose: 40 mg Cyclobenzaprine HCl (Flexeril) 10 mg PO TID PRN PRN Reason: Spasms Last Admin: 06/09/17 23:09 Dose: 10 mg Diphenhydramine HCl (Benadryl) 25 mg IVPUSH Q4H PRN PRN Reason: Nausea Last Admin: 06/09/17 19:21 Dose: 25 mg Docusate Sodium (Colace) 100 mg PO BID [facility] Last Admin: 06/10/17 09:04 Dose: 100 mg Duloxetine HCl (Cymbalta) 60 mg PO DAILY [facility] Last Admin: 06/10/17 09:05 Dose: 60 mg Famotidine (Pepcid) 20 mg PO Q12H [facility] Last Admin: 06/10/17 09:05 Dose: 20 mg Hydrochlorothiazide (Hydrochlorothiazide) 25 mg PO DAILY [facility] Last Admin: 06/10/17 09:05 Dose: 25 mg Ketorolac Tromethamine (Toradol) 15 mg IVPUSH Q6H PRN PRN Reason: Pain Lisinopril (Prinivil) 20 mg PO DAILY [facility] Last Admin: 06/10/17 09:05 Dose: 20 mg Magnesium Hydroxide (Milk Of Magnesia) 30 ml PO BID PRN PRN Reason: Constipation Morphine Sulfate (Morphine) 2 mg IVPUSH Q2H PRN PRN Reason: Breakthrough Pain Naloxone HCl (Narcan) 0.1 mg IVPUSH Q5M PRN PRN Reason: Oversedation Ondansetron HCl (Zofran) 4 mg IVPUSH Q6H PRN PRN Reason: Nausea/Vomiting Oxycodone/Acetaminophen (Percocet 325-5 Mg) 1 - 2 tab PO Q4H PRN PRN Reason: Pain Last Admin: 06/10/17 08:30 Dose: 2 tab Pramipexole Dihydrochloride (Mirapex) 0.25 mg PO BEDTIME [facility] Last Admin: 06/09/17 21:04 Dose: 0.25 mg Rivaroxaban (Xarelto) 10 mg PO DAILY [facility] Last Admin: 06/10/17 09:04 Dose: 10 mg Rosuvastatin Calcium (Crestor) 10 mg PO DAILY [facility] Last Admin: 06/10/17 09:04 Dose: 10 mg Senna (Senna) 8.6 mg PO BID PRN PRN Reason: Constipation Sodium Chloride (Saline Flush) 10 ml FLUSH ASDIRECTED PRN PRN Reason: Keep Vein Open Trazodone HCl (Trazodone) 100 mg PO BEDTIME [facility] Last Admin: 06/09/17 21:03 Dose: 100 mg Discontinued Medications Bupivacaine HCl (Marcaine 0.5%) Confirm Administered Dose 30 ml .ROUTE .STK-MED ONE Stop: 06/09/17 08:44 Last Admin: 06/09/17 10:34 Dose: 30 ml Cefazolin Sodium (Ancef) Confirm Administered Dose 2 gm .ROUTE .STK-MED ONE Stop: 06/09/17 08:21 Last Admin: 06/09/17 10:19 Dose: 2 gm Morphine Sulfate 8 mg/Epinephrine HCl 0.3 mg/Cefuroxime Sodium 750 mg/Ketorolac Tromethamine 30 mg/Sodium Chloride 27.9 ml 0 mg .XX ONETIME ONE Stop: 06/09/17 06:32 Last Admin: 06/09/17 10:35 Dose: 788.3 mg Diphenhydramine HCl (Benadryl) 25 mg IVPUSH Q6H PRN PRN Reason: itching Stop: 06/09/17 18:00 Diphenhydramine HCl (Benadryl) 25 mg IVPUSH ONETIME ONE Stop: 06/09/17 19:15 Last Admin: 06/09/17 19:32 Dose: Not Given Diphenhydramine HCl (Benadryl) 25 mg IVPUSH ONETIME ONE Stop: 06/09/17 21:42 Last Admin: 06/10/17 08:31 Dose: Not Given Fentanyl (Sublimaze) Confirm Administered Dose 100 mcg .ROUTE .STK-MED ONE Stop: 06/09/17 07:32 Fentanyl (Sublimaze) 50 mcg IVPUSH Q5M PRN PRN Reason: pain Stop: 06/09/17 18:00 Flunisolide (Nasalide Nasal [place]) 0 ml NASBOTH BID SADIE Hydromorphone HCl (Dilaudid) 0.5 mg IVPUSH Q15M PRN PRN Reason: Pain (severe 7-10) Stop: 06/09/17 18:00 Lactated Ringer's (Ringers, Lactated) 1,000 mls @ 125 mls/hr IV ASDIRECTED [facility] Last Admin: 06/09/17 07:42 Dose: 125 mls/hr Cefazolin Sodium/Dextrose 2 gm (/ Premix) 50 mls @ 100 mls/hr IV Q8H [facility] Stop: 06/10/17 08:59 Last Admin: 06/10/17 10:00 Dose: 100 mls/hr Lidocaine HCl (Xylocaine-Mpf 1%) Confirm Administered Dose 4 mls @ as directed .ROUTE .STK-MED ONE Stop: 06/09/17 07:33 Lactated Ringer's (Ringers, Lactated) Confirm Administered Dose 3,000 mls @ as directed .ROUTE .STK-MED ONE Stop: 06/09/17 11:04 Iodine (Iodine 2% Mild Tincture) Confirm Administered Dose 30 ml .ROUTE .STK- MED ONE Stop: 06/09/17 08:22 Last Admin: 06/09/17 10:17 Dose: 18 ml Lidocaine/Sodium Bicarbonate (Buffered Lidocaine 1% In Ns 8.4%) 0.25 ml IV ONETIME PRN PRN Reason: Prior to IV Start Last Admin: 06/09/17 07:40 Dose: 0.25 ml Midazolam HCl (Versed 1 Mg/Ml) Confirm Administered Dose 2 mg .ROUTE .STK-MED ONE Stop: 06/09/17 07:33 Midazolam HCl (Versed 1 Mg/Ml) Confirm Administered Dose 2 mg .ROUTE .STK-MED ONE Stop: 06/09/17 09:00 Morphine Sulfate (Duramorph Pf) Confirm Administered Dose 1 mg .ROUTE .STK-MED ONE Stop: 06/09/17 08:33 Ondansetron HCl (Zofran) 4 mg IVPUSH ONETIME PRN PRN Reason: Nausea/Vomiting Stop: 06/09/17 18:00 Phenylephrine HCl (Phenylephrine In Ns 100 Mcg/Ml) Confirm Administered Dose 1 mg .ROUTE .STK-MED ONE Stop: 06/09/17 09:42 Propofol (Diprivan 20 Ml) Confirm Administered Dose 600 mg .ROUTE .STK-MED ONE Stop: 06/09/17 07:32 Propofol (Diprivan 20 Ml) Confirm Administered Dose 200 mg .ROUTE .STK-MED ONE Stop: 06/09/17 07:33 Propofol (Diprivan 20 Ml) Confirm Administered Dose 200 mg .ROUTE .STK-MED ONE Stop: 06/09/17 10:02 Propofol (Diprivan 20 Ml) Confirm Administered Dose 200 mg .ROUTE .STK-MED ONE Stop: 06/09/17 10:35 Propofol (Diprivan 20 Ml) Confirm Administered Dose 200 mg .ROUTE .STK-MED ONE Stop: 06/09/17 10:49 Tranexamic Acid (Cyklokapron) Confirm Administered Dose 1,000 mg .ROUTE .STK- MED ONE Stop: 06/09/17 08:21 Last Admin: 06/09/17 10:45 Dose: 1,000 mg Vancomycin HCl (Vancomycin) Confirm Administered Dose 1 gm .ROUTE .STK-MED ONE Stop: 06/09/17 08:21 Last Admin: 06/09/17 10:46 Dose: 1 gm - Exam Wound/Incisions: Dressing Dry and Intact General: Alert, Cooperative, No Acute Distress Lungs: Normal Respiratory Effort Extremities: Other (NVS intact for BLE. Abbie's negative. ) - Problem List Review Problem List Initiated/Reviewed/Updated: Yes - My Orders Last 24 Hours: Active Orders 24 hr Category Date Time Status Ready for Discharge [RC] PER UNIT ROUTINE Care 06/10/17 12:44 Active Cholecalciferol (Vitamin D3) [Vitamin D3] Med 06/10/17 09:00 Active 5,000 units PO DAILY Citalopram [Celexa] Med 06/10/17 09:00 Active 40 mg PO DAILY DULoxetine [Cymbalta] Med 06/10/17 09:00 Active 60 mg PO DAILY Docusate Sodium [Colace] Med 06/09/17 21:00 Active 100 mg PO BID Famotidine [Pepcid] Med 06/09/17 21:00 Active 20 mg PO Q12H Hydrochlorothiazide Med 06/10/17 09:00 Active 25 mg PO DAILY Lisinopril [Prinivil] Med 06/10/17 09:00 Active 20 mg PO DAILY Pramipexole [Mirapex] Med 06/09/17 21:00 Active 0.25 mg PO BEDTIME Rivaroxaban [Xarelto] Med 06/10/17 09:00 Active 10 mg PO DAILY Rosuvastatin [Crestor] Med 06/10/17 09:00 Active 10 mg PO DAILY traZODone Med 06/09/17 21:00 Active 100 mg PO BEDTIME Medication Orders Albuterol (Proventil Hfa) 0 gm INH Q6H PRN PRN Reason: Shortness of Breath Bisacodyl (Dulcolax) 5 mg PO DAILY PRN PRN Reason: Constipation Cholecalciferol (Vitamin D3) 5,000 units PO DAILY [facility] Last Admin: 06/10/17 09:04 Dose: 5,000 units Citalopram Hydrobromide (Celexa) 40 mg PO DAILY [facility] Last Admin: 06/10/17 09:04 Dose: 40 mg Cyclobenzaprine HCl (Flexeril) 10 mg PO TID PRN PRN Reason: Spasms Last Admin: 06/09/17 23:09 Dose: 10 mg Diphenhydramine HCl (Benadryl) 25 mg IVPUSH Q4H PRN PRN Reason: Nausea Last Admin: 06/09/17 19:21 Dose: 25 mg Docusate Sodium (Colace) 100 mg PO BID [facility] Last Admin: 06/10/17 09:04 Dose: 100 mg Admin: 06/09/17 21:03 Dose: 100 mg Duloxetine HCl (Cymbalta) 60 mg PO DAILY [facility] Last Admin: 06/10/17 09:05 Dose: 60 mg Famotidine (Pepcid) 20 mg PO Q12H [facility] Last Admin: 06/10/17 09:05 Dose: 20 mg Admin: 06/09/17 21:04 Dose: 20 mg Hydrochlorothiazide (Hydrochlorothiazide) 25 mg PO DAILY [facility] Last Admin: 06/10/17 09:05 Dose: 25 mg Ketorolac Tromethamine (Toradol) 15 mg IVPUSH Q6H PRN PRN Reason: Pain Lisinopril (Prinivil) 20 mg PO DAILY [facility] Last Admin: 06/10/17 09:05 Dose: 20 mg Magnesium Hydroxide (Milk Of Magnesia) 30 ml PO BID PRN PRN Reason: Constipation Morphine Sulfate (Morphine) 2 mg IVPUSH Q2H PRN PRN Reason: Breakthrough Pain Naloxone HCl (Narcan) 0.1 mg IVPUSH Q5M PRN PRN Reason: Oversedation Ondansetron HCl (Zofran) 4 mg IVPUSH Q6H PRN PRN Reason: Nausea/Vomiting Oxycodone/Acetaminophen (Percocet 325-5 Mg) 1 - 2 tab PO Q4H PRN PRN Reason: Pain Last Admin: 06/10/17 08:30 Dose: 2 tab Admin: 06/09/17 21:03 Dose: 2 tab Admin: 06/09/17 16:23 Dose: 2 tab Pramipexole Dihydrochloride (Mirapex) 0.25 mg PO BEDTIME [facility] Last Admin: 06/09/17 21:04 Dose: 0.25 mg Rivaroxaban (Xarelto) 10 mg PO DAILY [facility] Last Admin: 06/10/17 09:04 Dose: 10 mg Rosuvastatin Calcium (Crestor) 10 mg PO DAILY [facility] Last Admin: 06/10/17 09:04 Dose: 10 mg Senna (Senna) 8.6 mg PO BID PRN PRN Reason: Constipation Sodium Chloride (Saline Flush) 10 ml FLUSH ASDIRECTED PRN PRN Reason: Keep Vein Open Trazodone HCl (Trazodone) 100 mg PO BEDTIME [facility] Last Admin: 06/09/17 21:03 Dose: 100 mg - Assessment Assessment (Free Text/Narrative):: POD#1 - left TKA - Plan Plan (Free Text/Narrative):: 1. Discharge to home today. 2. Hgb 11.5. 3. Xarelto, TEDs, frequent mobility. 4. Outpatient P.T. The pt's case was discussed with Dr. Smith today.
--- NOTE | 2017-06-13 15:43 | PCM.DCSUM1 ---
Discharge Summary - Hospital Course Brief History: Sohan is a 57 yo male who underwent left TKA with Dr. Smith on . The procedure was completed under spinal anesthesia. The pt tolerated the procedure well and was admitted to the Medical-Surgical Unit. Medical management was provided by the Hospitalist service. The pt's Hospital course was uneventful. The pt's Hgb on POD#1 was 11.5. On POD#1, Xarelto daily was initiated for VTE prophylaxis. SCDs and TEDs were also ordered. A Mepilex dressing was placed at the incision site at the time of surgery and remained clean and dry. The pt participated in P.T. and O.T. and progressed well. The pt was allowed to WBAT. On POD#1, the pt was deemed appropriate to discharge to home with his . - Discharge Data Discharge Date: 06/10/17 Discharge Disposition: Home, Self-Care 01 Condition: Good - Patient Summary/Data Consults: Consultations 06/09/17 06:32 Consult to Physician [CONS] Routine OT Evaluation and Treatment [CONS] Routine 06/09/17 06:35 PT Evaluation and Treatment [CONS] Routine - Patient Instructions Diet: Usual Diet as Tolerated Activity: Apply Ice, As Tolerated, Elevate Extremity, Full Weight Bearing Driving: Do Not Drive Showering/Bathing: May Shower Wound/Incision Care: Keep Operative Site/Wound Site Clean and Dry, Do NOT Change Dressing Notify Provider of: Fever, Increased Pain, Swelling and Redness, Drainage, Nausea and/or Vomiting Other/Special Instructions: Please get up and moving around every hour while awake. This helps to prevent blood clots. Please use your walker and have help as needed. Take the Xarelto blood thinner medication daily. This also helps to prevent blood clots. Do the exercises you were taught in the Hospital. Schedule for P.T. Use the pain medication as needed. The medication may cause drowsiness and constipation. Contact your primary care provider for instructions if you are constipated. You may use a stool softener like docusate sodium or Colace 100mg twice daily and/or a laxative like Miralax daily for constipation. Use the ice machine often. Elevate the limb to decrease swelling. Keep the Mepilex dressing in place until follow-up at the Clinic. Notify the Clinic if the dressing is saturated. Wear the MARY ALICE hose during the day and you may remove these at night. Eat a diet high in protein as this well help with healing. Schedule an appointment with your primary care provider for 'routine post-op care'. Call the Clinic with questions or concerns - [phone]. - Discharge Plan Prescriptions/Med Rec: Acetaminophen/oxyCODONE [Percocet 325-5 MG] 1 - 2 tab PO Q4H PRN #60 tablet PRN Reason: Pain Cyclobenzaprine [Flexeril] 10 mg PO TID PRN #40 tablet PRN Reason: Spasms Rivaroxaban [Xarelto] 10 mg PO DAILY #40 tablet Home Medications: Home Meds Rosuvastatin [Crestor] 10 mg PO DAILY 07/04/15 [History] Lisinopril/Hydrochlorothiazide [Lisinopril-Hctz 20-25 mg Tab] 1 tab PO DAILY [History] Albuterol [Ventolin HFA] 1 - 2 puff INH Q6H PRN 06/06/17 [History] Cholecalciferol (Vitamin D3) [Vitamin D3] 5,000 unit PO DAILY 06/06/17 [History] DULoxetine [Cymbalta] 60 mg PO DAILY 06/06/17 [History] Escitalopram [Lexapro] 20 mg PO DAILY 06/06/17 [History] Fish Oil/[place]-3 Fatty Acids [Fish Oil 1,000 MG] 2 g PO DAILY 06/06/17 [History] Multivitamin [Poly-Vitamin] 1 tab PO DAILY 06/06/17 [History] Pramipexole Di-HCl [Mirapex] 0.25 mg PO BEDTIME 06/06/17 [History] traZODone HCl [Trazodone HCl] 100 mg PO BEDTIME 06/06/17 [History] Acetaminophen/oxyCODONE [Percocet 325-5 MG] 1 - 2 tab PO Q4H PRN #60 tablet 06/15 [Rx] Cyclobenzaprine [Flexeril] 10 mg PO TID PRN #40 tablet 06/10/17 [Rx] Docusate Sodium [Colace] 100 mg PO BID cap 06/10/17 [Rx] Famotidine [Pepcid] 20 mg PO Q12H tablet 06/10/17 [Rx] Rivaroxaban [Xarelto] 10 mg PO DAILY #40 tablet 06/10/17 [Rx] Patient Handouts: Total Knee Replacement, Care After, [id number], Total Knee Replacement, [id number] Referrals: Whit Huertas PA-C [Physician Slot Router] - 06/17/17 9:30 am (Please follow up with Whit Huertas on 06/17/17 at 9:30AM, and a second follow up apt. with Whit Navarro on 06/25/17 at 11:00.) - Patient Data Vitals - Most Recent: Last Vital Signs Temp 98.4 F 06/10/17 11:49 Pulse 92 06/10/17 11:49 Resp 18 06/10/17 16:00 BP 118/72 06/10/17 12:00 Pulse Ox 93 L 06/10/17 12:00 Weight - Most Recent: 216 lb 6.4 oz Med Orders - Current: Current Medications Discontinued Medications Albuterol (Proventil Hfa) 0 gm INH Q6H PRN PRN Reason: Shortness of Breath Bisacodyl (Dulcolax) 5 mg PO DAILY PRN PRN Reason: Constipation Bupivacaine HCl (Marcaine 0.5%) Confirm Administered Dose 30 ml .ROUTE .STK-MED ONE Stop: 06/09/17 08:44 Last Admin: 06/09/17 10:34 Dose: 30 ml Cefazolin Sodium (Ancef) Confirm Administered Dose 2 gm .ROUTE .STK-MED ONE Stop: 06/09/17 08:21 Last Admin: 06/09/17 10:19 Dose: 2 gm Cholecalciferol (Vitamin D3) 5,000 units PO DAILY [facility] Last Admin: 06/10/17 09:04 Dose: 5,000 units Citalopram Hydrobromide (Celexa) 40 mg PO DAILY [facility] Last Admin: 06/10/17 09:04 Dose: 40 mg Morphine Sulfate 8 mg/Epinephrine HCl 0.3 mg/Cefuroxime Sodium 750 mg/Ketorolac Tromethamine 30 mg/Sodium Chloride 27.9 ml 0 mg .XX ONETIME ONE Stop: 06/09/17 06:32 Last Admin: 06/09/17 10:35 Dose: 788.3 mg Cyclobenzaprine HCl (Flexeril) 10 mg PO TID PRN PRN Reason: Spasms Last Admin: 06/09/17 23:09 Dose: 10 mg Diphenhydramine HCl (Benadryl) 25 mg IVPUSH Q4H PRN PRN Reason: Nausea Last Admin: 06/09/17 19:21 Dose: 25 mg Diphenhydramine HCl (Benadryl) 25 mg IVPUSH Q6H PRN PRN Reason: itching Stop: 06/09/17 18:00 Diphenhydramine HCl (Benadryl) 25 mg IVPUSH ONETIME ONE Stop: 06/09/17 19:15 Last Admin: 06/09/17 19:32 Dose: Not Given Diphenhydramine HCl (Benadryl) 25 mg IVPUSH ONETIME ONE Stop: 06/09/17 21:42 Last Admin: 06/10/17 08:31 Dose: Not Given Docusate Sodium (Colace) 100 mg PO BID [facility] Last Admin: 06/10/17 09:04 Dose: 100 mg Duloxetine HCl (Cymbalta) 60 mg PO DAILY [facility] Last Admin: 06/10/17 09:05 Dose: 60 mg Famotidine (Pepcid) 20 mg PO Q12H [facility] Last Admin: 06/10/17 09:05 Dose: 20 mg Fentanyl (Sublimaze) Confirm Administered Dose 100 mcg .ROUTE .STK-MED ONE Stop: 06/09/17 07:32 Fentanyl (Sublimaze) 50 mcg IVPUSH Q5M PRN PRN Reason: pain Stop: 06/09/17 18:00 Flunisolide (Nasalide Nasal [place]) 0 ml NASBOTH BID [facility] Hydrochlorothiazide (Hydrochlorothiazide) 25 mg PO DAILY [facility] Last Admin: 06/10/17 09:05 Dose: 25 mg Hydromorphone HCl (Dilaudid) 0.5 mg IVPUSH Q15M PRN PRN Reason: Pain (severe 7-10) Stop: 06/09/17 18:00 Lactated Ringer's (Ringers, Lactated) 1,000 mls @ 125 mls/hr IV ASDIRECTED [facility] Last Admin: 06/09/17 07:42 Dose: 125 mls/hr Cefazolin Sodium/Dextrose 2 gm (/ Premix) 50 mls @ 100 mls/hr IV Q8H [facility] Stop: 06/10/17 08:59 Last Admin: 06/10/17 10:00 Dose: 100 mls/hr Lidocaine HCl (Xylocaine-Mpf 1%) Confirm Administered Dose 4 mls @ as directed .ROUTE .STK-MED ONE Stop: 06/09/17 07:33 Lactated Ringer's (Ringers, Lactated) Confirm Administered Dose 3,000 mls @ as directed .ROUTE .STK-MED ONE Stop: 06/09/17 11:04 Iodine (Iodine 2% Mild Tincture) Confirm Administered Dose 30 ml .ROUTE .STK- MED ONE Stop: 06/09/17 08:22 Last Admin: 06/09/17 10:17 Dose: 18 ml Ketorolac Tromethamine (Toradol) 15 mg IVPUSH Q6H PRN PRN Reason: Pain Lidocaine/Sodium Bicarbonate (Buffered Lidocaine 1% In Ns 8.4%) 0.25 ml IV ONETIME PRN PRN Reason: Prior to IV Start Last Admin: 06/09/17 07:40 Dose: 0.25 ml Lisinopril (Prinivil) 20 mg PO DAILY [facility] Last Admin: 06/10/17 09:05 Dose: 20 mg Magnesium Hydroxide (Milk Of Magnesia) 30 ml PO BID PRN PRN Reason: Constipation Midazolam HCl (Versed 1 Mg/Ml) Confirm Administered Dose 2 mg .ROUTE .STK-MED ONE Stop: 06/09/17 07:33 Midazolam HCl (Versed 1 Mg/Ml) Confirm Administered Dose 2 mg .ROUTE .STK-MED ONE Stop: 06/09/17 09:00 Morphine Sulfate (Morphine) 2 mg IVPUSH Q2H PRN PRN Reason: Breakthrough Pain Morphine Sulfate (Duramorph Pf) Confirm Administered Dose 1 mg .ROUTE .STK-MED ONE Stop: 06/09/17 08:33 Naloxone HCl (Narcan) 0.1 mg IVPUSH Q5M PRN PRN Reason: Oversedation Ondansetron HCl (Zofran) 4 mg IVPUSH Q6H PRN PRN Reason: Nausea/Vomiting Ondansetron HCl (Zofran) 4 mg IVPUSH ONETIME PRN PRN Reason: Nausea/Vomiting Stop: 06/09/17 18:00 Oxycodone/Acetaminophen (Percocet 325-5 Mg) 1 - 2 tab PO Q4H PRN PRN Reason: Pain Last Admin: 06/10/17 16:31 Dose: 2 tab Phenylephrine HCl (Phenylephrine In Ns 100 Mcg/Ml) Confirm Administered Dose 1 mg .ROUTE .STK-MED ONE Stop: 06/09/17 09:42 Pramipexole Dihydrochloride (Mirapex) 0.25 mg PO BEDTIME [facility] Last Admin: 06/09/17 21:04 Dose: 0.25 mg Propofol (Diprivan 20 Ml) Confirm Administered Dose 600 mg .ROUTE .STK-MED ONE Stop: 06/09/17 07:32 Propofol (Diprivan 20 Ml) Confirm Administered Dose 200 mg .ROUTE .STK-MED ONE Stop: 06/09/17 07:33 Propofol (Diprivan 20 Ml) Confirm Administered Dose 200 mg .ROUTE .STK-MED ONE Stop: 06/09/17 10:02 Propofol (Diprivan 20 Ml) Confirm Administered Dose 200 mg .ROUTE .STK-MED ONE Stop: 06/09/17 10:35 Propofol (Diprivan 20 Ml) Confirm Administered Dose 200 mg .ROUTE .STK-MED ONE Stop: 06/09/17 10:49 Rivaroxaban (Xarelto) 10 mg PO DAILY [facility] Last Admin: 06/10/17 09:04 Dose: 10 mg Rosuvastatin Calcium (Crestor) 10 mg PO DAILY [facility] Last Admin: 06/10/17 09:04 Dose: 10 mg Senna (Senna) 8.6 mg PO BID PRN PRN Reason: Constipation Sodium Chloride (Saline Flush) 10 ml FLUSH ASDIRECTED PRN PRN Reason: Keep Vein Open Tranexamic Acid (Cyklokapron) Confirm Administered Dose 1,000 mg .ROUTE .STK- MED ONE Stop: 06/09/17 08:21 Last Admin: 06/09/17 10:45 Dose: 1,000 mg Trazodone HCl (Trazodone) 100 mg PO BEDTIME [facility] Last Admin: 06/09/17 21:03 Dose: 100 mg Vancomycin HCl (Vancomycin) Confirm Administered Dose 1 gm .ROUTE .STK-MED ONE Stop: 06/09/17 08:21 Last Admin: 06/09/17 10:46 Dose: 1 gm *Q Meaningful Use (DIS) - VTE *Q VTE Criteria *Q: - Stroke *Q Stroke Criteria *Q: - AMI *Q AMI Criteria *Q:
--- NOTE | 2017-06-17 16:18 | OR ---
DATE OF OPERATION: 06/09/2017 SURGEON: Manjinder Smith MD OPERATION PERFORMED: Left knee total knee arthroplasty. PREOPERATIVE DIAGNOSIS: Left knee osteoarthrosis. POSTOPERATIVE DIAGNOSIS: Left knee osteoarthrosis. ANESTHESIA: Local MAC with spinal. ANESTHESIA PROVIDER: Eugenia Dixon. TUCKING MACHINE OPERATOR: Whit Huertas PA-C and Yun Torres LPN. ESTIMATED BLOOD LOSS: 700 mL. COMPLICATIONS: None. CONDITION: Stable. IMPLANTS: 1. [place] size 6 PS femur. 2. [place] size 5 universal tibial baseplate. 3. [place] size 5, 9 mm PS X3 polyethylene. 4. David 32 x 10 mm asymmetric patella. DESCRIPTION OF PROCEDURE: The patient was identified in the preop holding area. Proper site was marked and identified by the surgeon. The patient was taken back to the operating theater. After adequate anesthesia, the patient's left lower extremity had a nonsterile tourniquet applied and it was then sterilely prepped and draped in the usual sterile fashion. OR timeout was performed. The patient received 2 g IV Ancef. At this time, left lower extremity was exsanguinated. Tourniquet was insufflated to 300 mmHg. Standard medial parapatellar incision was made. Medial parapatellar arthrotomy was created. Deep fibers of the MCL were raised and anterior fat pad was resected. At this time, attention was turned to the patella. Patella measured 25, it was resected to a 15 and that 8 mm resected off the distal femur. Drill holes were then drilled and found to be in adequate position. The drill was then drilled in the distal femur and the intramedullary distal femoral cutting guide was then placed. 8 mm was resected off the distal femur and was found to be an adequate resection. Sizing guide was placed. It was found to be a size 6 femur that was shown on the implant record at the beginning of this dictation. The drill holes were drilled for the epicondylar axis using [place] line and epicondyles as reference. At this time, the 4-in- 1 cutting block was placed. An anterior posterior and anterior and posterior chamfer cuts were then completed. The correct size box cut was then placed and the box cut was completed and found to be an adequate resection. Attention was turned to the tibia. The posterior medial lateral retractors were placed. The extramedullary tibial guide was placed. It was placed in the old footprint of the ACL. It was aligned with the center of the ankle and 0 degrees of slope, 9 mm was then resected off the unaffected lateral side. There was found to be an acceptable reduction. At this time, posterior osteophytes were removed along with medial and lateral meniscus. A trial implant was placed with a correct sized tibia that was mentioned at the beginning of the dictation. A David size 5, 9 mm PS X3 polyethylene was then placed. The patient's knee was brought through range of motion. The patella was tracking centrally and was stable to varus and valgus stress. Alignment was found to be roughly at 0 degrees. At this time, cement was mixed on the back table. The tibia was stamped and drilled in proper rotation. All cut surfaces were irrigated with pulse lavage irrigation with Ancef and then completely dried. Once this was completed, then the cement was ready. The universal tibial base plate was cemented in place. Next, the [place] size 6 PS femur cemented into place and the [place] size 5, 9 mm PS X3 polyethylene was placed. The patient's knee was brought into full extension. Excess cement was removed. The patella was then cemented in place at this time. Tourniquet was deflated. One liter dilute Betadine solution was irrigated through the knee along with 3 L of pulse lavage irrigation with Ancef. Periarticular injection was then completed. The patient's knee was brought through a range of motion. Once the cement had time to set up and it was found to be stable to varus valgus stress, the patella was tracking centrally with full range of motion. At this time, a #2 barbed suture was used for closure of the medial parapatellar arthrotomy. Topical tranexamic acid was placed. 2-0 Vicryl was used subcutaneously, a running 3-0 Monocryl was used subcuticularly. The patient tolerated the procedure well and was sent to the PACU in stable condition. MMODAL /[id number]
--- NOTE | 2017-06-17 16:39 | PCM.OPNOTE ---
Addendum entered and electronically signed by Manjinder Smith MD 06/17/17 15:53 : [id number] Original Note: - General Post-Op/Procedure Note Date of Surgery/Procedure: 06/09/17 Operative Procedure(s): left total knee arthroplasty Pre Op Diagnosis: left knee osteoarthrosis Post-Op Diagnosis: Same Anesthesia Technique: Local, MAC, Spinal Primary Surgeon: Manjinder Smith Anesthesia Provider: Eugenia Clayton Senior Engineering Technician: Whit Huertas Senior Engineering Technician: Yun Torres EBL in mLs: 700 Complications: None Condition: Good
== END 2017-06-10 16:35 | disposition home or self-care (01) | DRG 470 ==
LOC: JD.OB 06:51 → JD.MS 06:51
PROVIDERS: ADMIT Orthopaedic Surgery; ATTEND Orthopaedic Surgery
PROC: 0SRD0J9 Replacement of Left Knee Joint with Synthetic Substitute, Cemented, Open Approach (ICD-10-PCS; principal; 2017-06-09)
DX: M17.12 Unilateral primary osteoarthritis, left knee (principal); F32.9 Major depressive disorder, single episode, unspecified; I10 Essential (primary) hypertension; E78.5 Hyperlipidemia, unspecified; G47.00 Insomnia, unspecified; Z87.891 Personal history of nicotine dependence; G25.81 Restless legs syndrome; J30.2 Other seasonal allergic rhinitis; H90.3 Sensorineural hearing loss, bilateral; Z79.82 Long term (current) use of aspirin; Z79.899 Other long term (current) drug therapy; H54.7 Unspecified visual loss; F41.9 Anxiety disorder, unspecified; Z96.642 Presence of left artificial hip joint; G47.33 Obstructive sleep apnea (adult) (pediatric); J45.20 Mild intermittent asthma, uncomplicated
CPT/HCPCS: 01402; 36415; 51798; 73560-26-LT; 73560-LT; 80053; 85025; 85027; 87641; 94762; 97110-GP; 97116-GP; 97162-GP; 97166-GO; 97530-GO; 97535-GO; A9270-GY; C1713; C1776; J0171; J0690; J0697; J1200; J1885; J2250; J2270; J2274; J2704; J3010; J3370; J7120

== ENCOUNTER 2017-06-25 16:11 | Emergency (ER) | payer MEDICARE, MEDICAID ==
[2017-06-25 16:23] VITALS: BP 149/114
--- NOTE | 2017-06-25 16:36 | EDM.PDOC ---
ED HPI GENERAL MEDICAL PROBLEM - General Chief Complaint: Allergic Reaction Stated Complaint: SOB W/FATIGUE (POST KNEE REPLACEMENT) Time Seen by Provider: 06/25/17 16:34 Source of Information: Reports: Patient History Limitations: Reports: No Limitations - History of Present Illness INITIAL COMMENTS - FREE TEXT/NARRATIVE: 57-year-old male presents to the ED for evaluation of generalized hives that started 4 days ago. He was seen by Alyse Espinal in clinic yesterday and started on Zyrtec and we believe prednisone will be checking with the drugstore.. He states she's not taken any Motrin or Aleve because he's on Xarelto or supposed to be on this medication he ran out of it. He denies taking any Percocet since before . He is not taking any aspirin. He is on numerous other medications of which she's been on long-term. His chief complaint is shortness of breath on minimal exertion and he is now 16 days post total left knee replacement. There is a risk for him developing a pulmonary embolism and DVT because he's been noncompliant with his Xarelto. He denies cough or sputum production. He states that he is just short of breath on minimal exertion such as getting dressed or walking from the house to the car. Denies any orthopnea. He has no known heart condition.. He does have high cholesterol and high blood pressure. He denies any chest pains. He does admit to being quite anxious. O2 sats are 100% on room air. He is mildly hypertensive at this time and respiratory distress 24/min. Onset: Gradual, Unknown/Unsure (He he thinks that high started before either the of the .) Duration: Day(s): Location: Reports: Generalized (Generalized urticaria but associated shortness of breath on minimal exertion.) Severity: Moderate Improves with: Reports: Rest Worsens with: Reports: Other (Denies true orthopnea.), Movement Context: Reports: Other (He is 16 days postop left total knee replacement.). Denies: Activity, Exercise, Lifting, Sick Contact, Trauma Associated Symptoms: Reports: Malaise, Rash (Generalized urticaria), Shortness of Breath, Weakness, Other (Generalized). Denies: No Other Symptoms, Confusion , Chest Pain, Cough, cough w sputum, Diaphoresis, Fever/Chills, Headaches, Loss of Appetite, Nausea/Vomiting, Seizure, Syncope Treatments TAPE STRINGER: Reports: Other (see below) (Has taking as Zyrtec today as prescribed yesterday.) - Related Data Allergies Allergy/AdvReac Type Severity Reaction Status Date / Time No Known Allergies Allergy Verified 06/25/17 16:23 Home Meds: Home Meds Rosuvastatin [Crestor] 10 mg PO DAILY 07/04/15 [History] Lisinopril/Hydrochlorothiazide [Lisinopril-Hctz 20-25 mg Tab] 1 tab PO DAILY [History] Albuterol [Ventolin HFA] 1 - 2 puff INH Q6H PRN 06/06/17 [History] Cholecalciferol (Vitamin D3) [Vitamin D3] 5,000 unit PO DAILY 06/06/17 [History] DULoxetine [Cymbalta] 60 mg PO DAILY 06/06/17 [History] Escitalopram [Lexapro] 20 mg PO DAILY 06/06/17 [History] Fish Oil/[place]-3 Fatty Acids [Fish Oil 1,000 MG] 2 g PO DAILY 06/06/17 [History] Multivitamin [Poly-Vitamin] 1 tab PO DAILY 06/06/17 [History] Pramipexole Di-HCl [Mirapex] 0.25 mg PO BEDTIME 06/06/17 [History] traZODone HCl [Trazodone HCl] 100 mg PO BEDTIME 06/06/17 [History] Docusate Sodium [Colace] 100 mg PO BID cap 06/10/17 [Rx] Rivaroxaban [Xarelto] 10 mg PO DAILY #40 tablet 06/10/17 [Rx] Cetirizine HCl [Zyrtec] 10 mg PO DAILY 06/25/17 [History] Prednisone [IJD: predniSONE] 20 mg PO ASDIRECTED #15 tab 06/25/17 [Rx] hydrOXYzine HCl [Atarax] 25 mg PO Q6H PRN 06/25/17 [History] Past Medical History HEENT History: Reports: Impaired Vision Other HEENT History: bilateral impacted cerumen, hearing loss, weras glasses, has hearing aids Cardiovascular History: Reports: High Cholesterol, Hypertension Respiratory History: Reports: Asthma Gastrointestinal History: Reports: None Genitourinary History: Reports: None FRAME COVERER History: Reports: None Musculoskeletal History: Reports: Other (See Below) Other Musculoskeletal History: left knee pain, restless leg syndrome, left plantar fasciitis, rib sprain Neurological History: Reports: Speech Problems Psychiatric History: Reports: Anxiety, Depression Other Psychiatric History: insomnia Endocrine/Metabolic History: Reports: None Hematologic History: Reports: None Immunologic History: Reports: None Oncologic (Cancer) History: Reports: None Dermatologic History: Reports: None - Infectious Disease History Infectious Disease History: Reports: None Other Infectious Disease History: Pt. cannot remember - Past Surgical History Head Surgeries/Procedures: Reports: None Cardiovascular Surgical History: Reports: None GI Surgical History: Reports: Colonoscopy Male Surgical History: Reports: None Endocrine Surgical History: Reports: None Neurological Surgical History: Reports: None Musculoskeletal Surgical History: Reports: Hip Replacement, Knee Replacement Oncologic Surgical History: Reports: None Social & Family History - Family History Family Medical History: Noncontributory - Tobacco Use Smoking Status *Q: Never Smoker Years of Tobacco use: 2 Packs/Tins Daily: 2.5 Used Tobacco, but Quit: Yes Month Tobacco Last Used: many years ago per pt report Second Hand Smoke Exposure: No - Caffeine Use Caffeine Use: Reports: Coffee, Energy Drinks - Recreational Drug Use Recreational Drug Use: No Recreational Drug Use Frequency: Rarely - Living Situation & Occupation Living situation: Reports: Occupation: Unemployed ED ROS ALLERGIC REACTION - Review of Systems Review Of Systems: See Below Constitutional: Reports: Malaise, Weakness, Fatigue, Weight Gain. Denies: Fever , Chills HEENT: Reports: Glasses Respiratory: Reports: Shortness of Breath. Denies: Wheezing, Pleuritic Chest Pain, Cough, Sputum, Hemoptysis Cardiovascular: Reports: Blood Pressure Problem, Dyspnea on Exertion (Mild left lower extremity), Edema. Denies: Chest Pain, Claudication (Has high blood pressure.), Lightheadedness, Orthopnea, Palpitations Endocrine: Reports: Fatigue GI/Abdominal: Reports: Constipation (Some problems with constipation from pain pills. Better since he stopped them.) : Reports: Frequency, Other (Nocturia 3) Musculoskeletal: Reports: Joint Pain (Back pain left knee pain but overall feels knee is better than it was before surgery.) Skin: Reports: Urticaria (Generalized urticaria with associated pruritus.) Neurological: Denies: Confusion, Dizziness, Headache, Numbness, Tingling Psychiatric: Reports: Anxiety Hematologic/Lymphatic: Reports: No Symptoms Immunologic: Reports: No Symptoms ED EXAM GENERAL NO PERIP PULSE - Physical Exam Exam: See Below Exam Limited By: No Limitations General Appearance: Anxious, Mild Distress Eye Exam: Bilateral Eye: Normal Inspection Ears: Normal TMs Throat/Mouth: Normal Inspection, Normal Lips, Normal Oropharynx, Other Head: Atraumatic (Uvula or floor of mouth are normal.), Normocephalic Neck: Normal Inspection, Supple, Non-Tender, Full Range of Motion. No: Carotid Bruit, Lymphadenopathy (L), Lymphadenopathy (R) Respiratory/Chest: Lungs Clear (Tachypneic at rest.), Normal Breath Sounds, No Accessory Muscle Use, Respiratory Distress, Other (O2 sats 100% on room air). No: Decreased Breath Sounds, Crackles, Rales, Rhonchi, Wheezing Cardiovascular: No Gallop, No Murmur, No Rub, Tachycardia (Resting tachycardia at 10 2/m.). No: Normal Peripheral Pulses GI/Abdominal: Soft, Non-Tender, No Organomegaly, No Abnormal Bruit, No Mass, Pelvis Stable, Other (Moderate abdominal obesity.). No: Rebound, Tender (Male) Exam: No Hernia Back Exam: Normal Inspection, Full Range of Motion. No: CVA Tenderness (L), CVA Tenderness (R) Extremities: Pedal Edema (Left lower extremity edema postoperative swelling as one would expect.), Other (Wound left knee has Steri-Strips in place surrounding erythema appears to be contact irritation from glues. There is no signs of infection in the wound.) Neurological: Alert, Oriented, CN II-XII Intact, Normal Cognition Psychiatric: Normal Affect, Anxious (Mildly anxious) Skin Exam: Other (He has generalized hives. This has the appearance of a drug eruption.) Course - Vital Signs Last Recorded V/S: Last Vital Signs Temp 36.2 C 06/25/17 16:10 Pulse 100 06/25/17 16:10 Resp 24 H 06/25/17 16:10 BP 149/114 H 06/25/17 16:10 Pulse Ox 100 06/25/17 16:10 - Orders/Labs/Meds Orders: Active Orders 24 hr Category Date Time Status EKG Documentation Completion [RC] STAT Care 06/25/17 16:34 Active Chest PE [Ang Chest] [CT] Stat Exams 06/25/17 17:35 Taken VL Duplex Lwr Ext Veins Ltd Lt [US] Stat Exams 06/25/17 17:31 Ordered Sodium Chloride 0.9% [Normal Saline] 1,000 ml Med 06/25/17 18:45 Active IV ASDIRECTED Sodium Chloride 0.9% [Normal Saline] 100 ml Med 06/25/17 18:00 Active IV ASDIRECTED Medication Orders Sodium Chloride (Normal Saline) 100 mls @ 60 mls/hr IV ASDIRECTED SADIE Last Admin: 06/25/17 18:50 Dose: 60 mls/hr Sodium Chloride (Normal Saline) 1,000 mls @ 999 mls/hr IV ASDIRECTED SADIE Labs: Laboratory Tests 06/25/17 06/25/17 06/25/17 Range/Units 16:40 16:40 16:40 WBC 10.34 H (4.23-9.07) K/mm3 RBC 4.00 L (4.63-6.08) M/mm3 Hgb 11.5 L (13.7-17.5) gm/L Hct 34.6 L (40.1-51.0) % MCV 86.5 (79.0-92.2) fl MCH 28.8 (25.7-32.2) pg MCHC 33.2 (32.2-35.5) g/dl RDW Std Deviation 41.3 (35.1-43.9) fL Plt Count 560 H (163-337) K/mm3 MPV 8.2 L (9.4-12.3) fl Neutrophils % (Manual) 74 H (40-60) % Band Neutrophils % 0 (0-10) % Lymphocytes % (Manual) 20 (20-40) % Atypical Lymphs % 1 % Monocytes % (Manual) 4 (2-10) % Eosinophils % (Manual) 1 (0.8-7.0) % Basophils % (Manual) 0 L (0.2-1.2) Platelet Estimate Increased Plt Morphology Comment Normal Polychromasia 1+ slight Poikilocytosis 1+ slight Ovalocytes 1+ slight RBC Morph Comment Abnormal D-Dimer, Quantitative 16.09 H (0.19-0.59) mg/L Sodium 135 L (136-145) mEq/L Potassium 4.7 (3.5-5.1) mEq/L Chloride 99 (98-107) mEq/L Carbon Dioxide 27 (21-32) mEq/L Anion Gap 13.7 (5-15) BUN 22 H (7-18) mg/dL Creatinine 0.9 (0.7-1.3) mg/dL Est Cr Clr Drug Dosing 91.65 mL/min Estimated GFR (MDRD) > 60 (>60) mL/min BUN/Creatinine Ratio 24.4 H (14-18) Glucose 95 (74-106) mg/dL Calcium 9.7 (8.5-10.1) mg/dL Total Bilirubin 0.8 (0.2-1.0) mg/dL AST 15 (15-37) U/L ALT 27 (16-63) U/L Alkaline Phosphatase 126 H (46-116) U/L CK-MB (CK-2) < 0.5 (0-3.6) ng/ml Troponin I < 0.017 (0.00-0.056) ng/mL C-Reactive Protein 14.2 H* (<1.0) mg/dL NT-Pro-B Natriuret Pep 11 (0-125) pg/mL Total Protein 7.3 (6.4-8.2) g/dl Albumin 3.2 L (3.4-5.0) g/dl Globulin 4.1 gm/dL Albumin/Globulin Ratio 0.8 L (1-2) Meds: Medications Generic Name Dose Route Start Last Admin Trade Name Freq PRN Reason Stop Dose Admin Sodium Chloride 100 mls @ 60 mls/hr 06/25/17 18:00 06/25/17 18:50 Normal Saline IV 60 mls/hr ASDIRECTED SADIE Administration Sodium Chloride 1,000 mls @ 999 mls/hr 06/25/17 18:45 Normal Saline IV ASDIRECTED SADIE Discontinued Medications Generic Name Dose Route Start Last Admin Trade Name Freq PRN Reason Stop Dose Admin Diphenhydramine HCl 50 mg 06/25/17 17:01 06/25/17 17:30 Benadryl PO 06/25/17 17:02 50 mg ONETIME ONE Administration Sodium Chloride Confirm 06/25/17 18:49 Normal Saline Administered 06/25/17 18:50 Dose 1,000 mls @ as directed .ROUTE .STK-MED ONE Iopamidol 100 ml 06/25/17 17:58 06/25/17 18:50 Isovue-370 (76%) IVPUSH 06/25/17 17:59 100 ml ONETIME ONE Administration Lorazepam 1 mg 06/25/17 17:01 Ativan PO 06/25/17 17:02 ONETIME ONE Prednisone 30 mg 06/25/17 17:01 06/25/17 17:30 Prednisone PO 06/25/17 17:02 30 mg ONETIME ONE Administration Sodium Chloride 10 ml 06/25/17 17:58 06/25/17 18:50 Saline Flush FLUSH 06/25/17 17:59 10 ml ONETIME ONE Administration - Radiology Interpretation Free Text/Narrative:: 57-year-old male presents to the ED primarily for assessment of dyspnea on minimal exertion. Of note he is is 16 days post left total knee replacement therapy. Is supposed to be on xarelto postoperatively to prevent DVT but ran out of medication 2 days ago. He is supposed to be on it for 6 weeks postoperatively. He denies orthopnea or cough. States he gets short of breath however just ring is closed on or walking from the house to the car. He is obese has no known COPD but uses albuterol inhaler on a when necessary basis. He has no fever chills or cough. He presents also with generalized urticaria that started before Trevor or 4-5 days ago. This appears to be a drug- induced rash. He was started on Zyrtec and hydroxyzine yesterday. He thought it was prednisone but he was not started on steroids. Examination reveals him to be tachypnea can mildly tachycardic at rest. O2 sats are 100% on room air. He does have swelling which I would state is normal postoperative swelling left lower extremity plan he will have a workup to rule out a DVT/pulmonary embolism. Also congestive heart failure as he has risk factors. I will place him on Benadryl 50 mg by mouth since she's not used any Benadryl and prednisone 30 mg by mouth for urticaria. He is anxious but I think the Benadryl will probably provide some degree of sedation. One view chest x-ray will be done - Re-Assessments/Exams Free Text/Narrative Re-Assessment/Exam: 06/25/17 17:31 d-dimer came back elevated at 16.1. We will therefore have an ultrasound of his left lower extremity and a pulmonary angiogram once I confirmed that his creatinine is normal. Strong suspicion that he has developed a pulmonary embolism. Of note chest x-ray is within normal limits showing no signs of pulmonary edema. ECG reveals early R-wave transition suggestive of possible right ventricular hypertrophy pattern. Again suspicious for possible PE. 06/25/17 17:34 WBC is 10.3 for differential pending. Hemoglobin is 11.5 with hematocrit of 34.6. White count is elevated at 560,000. D-dimer is 16.09. Sodium 135. Potassium 4.7. Chloride 99 bicarbonate 27. Anion gap is 13.7 BUN is 22 creatinine is 0.9. GFR is greater than 60. Glucose is 95 calcium is 9.7. Bilirubin 0.8. Alk phosphatase minimally elevated at 126. CK-MB fraction is less than 0.5 troponin I is less than 0.017. C-reactive protein is 14.2. BNP is 11. Kidney function is good enough to stand a CT pulmonary angiogram. I will therefore order this test as well. Departure - Departure Time of Disposition: 19:34 Disposition: Home, Self-Care 01 Condition: Fair Clinical Impression: Urticaria - Discharge Information Prescriptions: Prednisone [IJD: predniSONE] 20 mg PO ASDIRECTED #15 tab Referrals: Whit Huertas PA-C [Primary Care Provider] - Forms: ED Department Discharge Additional Instructions: Evaluation in the emergency room carried out today in regards to feeling short of breath on minimal exertion such as getting dressed or just walking from the house to the car. Recent total knee replacement on the left side June 09 with use of anticoagulant xarelto 10 mg daily to prevent blood clot formation in the leg after operation. He ran out of medication a couple of days ago. Or concern arose about possibility of a blood clot in your lung. Tests that we do for blood clot called to d-dimer was strongly positive and therefore you had a CT pulmonary angiogram of your chest and also a Doppler ultrasound of left leg. Both of these tests proved to be negative for blood clot in either your leg or your lungs. Second reason for attending the ED was generalized urticaria or hives. This strongly is suggestive of a drug eruption or an allergy to one of your medications but it is not clear as to what medication might be doing this. Even his prednisone 20 mg in the morning and at supper for 5 days and then 1 tablet in the morning only for another 5 days to bring the allergic reaction under control. He mails use Benadryl 50 mg every 6 hours as needed for relief of itch. Continue Xarelto 10 mg daily as previously prescribed. I did give you a tablet in the ED so that you don't have to sheepskin pickler her prescription for this medication until tomorrow. - My Orders Last 24 Hours: My Active Orders 06/25/17 16:34 EKG Documentation Completion [RC] STAT 06/25/17 17:31 VL Duplex Lwr Ext Veins Ltd Lt [US] Stat 06/25/17 17:35 Chest PE [Ang Chest] [CT] Stat 06/25/17 18:00 Sodium Chloride 0.9% [Normal Saline] 100 ml IV ASDIRECTED 06/25/17 18:45 Sodium Chloride 0.9% [Normal Saline] 1,000 ml IV ASDIRECTED - Assessment/Plan Last 24 Hours: My Active Orders 06/25/17 16:34 EKG Documentation Completion [RC] STAT 06/25/17 17:31 VL Duplex Lwr Ext Veins Ltd Lt [US] Stat 06/25/17 17:35 Chest PE [Ang Chest] [CT] Stat 06/25/17 18:00 Sodium Chloride 0.9% [Normal Saline] 100 ml IV ASDIRECTED 06/25/17 18:45 Sodium Chloride 0.9% [Normal Saline] 1,000 ml IV ASDIRECTED
[2017-06-25] MEDS ORDERED: diphenhydrAMINE 50 MG Cap PO ONE (17:01)
[2017-06-25] MEDS ORDERED: predniSONE 20 MG Tab PO ONE (17:01)
[2017-06-25] MEDS ORDERED: LORazepam 1 MG Tab PO ONE (17:01)
--- NOTE | 2017-06-25 17:44 | CR ---
Chest: Portable view of the chest was obtained. Comparison: Prior chest x-ray of 05/23/17. Heart size and mediastinum are normal. Lungs are clear. Previous right shoulder surgery is noted. Impression: 1. Nothing acute is appreciated on portable chest x-ray. Diagnostic code #2
[2017-06-25] MEDS ORDERED: Sodium Chloride 0.9% 10 ML Syringe FLUSH ONE (17:58)
[2017-06-25] MEDS ORDERED: Iopamidol 755 Mg/ML 100 ML Bottle IVPUSH ONE (17:58)
[2017-06-25] MEDS ORDERED: Sodium Chloride 0.9% 100 ML IV SCH (18:00)
[2017-06-25] MEDS ORDERED: Sodium Chloride 0.9% 1,000 ML IV SCH (18:45)
[2017-06-25] MEDS ORDERED: Sodium Chloride 0.9% 1,000 ML ONE (18:49)
[2017-06-25] MEDS ORDERED: Rivaroxaban 10 MG Tab PO ONE (19:11)
--- NOTE | 2017-06-25 19:28 | CT ---
CT chest Technique: Multiple axial sections through the chest were obtained. Intravenous contrast was utilized. Study performed as a pulmonary angiogram protocol. Findings: Opacification of the pulmonary artery is slightly less than optimal. No definite pulmonary embolism is seen within the main or segmental branches but smaller subsegmental pulmonary emboli could be missed. Mediastinum and hilar regions show no adenopathy or mass. No pericardial thickening is seen. Small portion of the visualized upper abdominal structures appear within normal limits. Lungs are clear with no acute pulmonary densities. No pleural effusions are seen. No pneumothorax is seen. Bone window settings were reviewed which appears within normal limits for the patient's age. Impression: 1. Pulmonary arteries are not optimally opacified. No findings of pulmonary embolism seen within the main or segmental branches but small subsegmental pulmonary emboli could be missed. 2. No additional abnormality is seen on CT study of the chest performed as a pulmonary angiogram protocol. Diagnostic code #2
--- NOTE | 2017-06-25 19:29 | US ---
Left lower extremity deep venous ultrasound: Duplex and color flow imaging was obtained of the left common femoral, proximal greater saphenous, superficial femoral, popliteal, posterior tibial peroneal veins. Right common femoral vein was also evaluated. Findings: Peroneal vein not seen well enough to compress but appears patent by augmentation. Other veins show normal phasic flow, augmentation and compression. Impression: 1. No evidence of deep venous thrombosis is seen within the left lower extremity or within the right common femoral vein. Diagnostic code #1
== END 2017-06-25 19:50 | disposition home or self-care (01) ==
LOC: JD.ED 16:11
DX: L50.9 Urticaria, unspecified (principal); I10 Essential (primary) hypertension; J45.909 Unspecified asthma, uncomplicated; E78.00 Pure hypercholesterolemia, unspecified; Z96.652 Presence of left artificial knee joint; Z87.891 Personal history of nicotine dependence; Z79.899 Other long term (current) drug therapy
CPT/HCPCS: 36415; 71010; 71275; 80053; 82553; 83880; 84484; 85025; 85379; 86140; 93005; 93971; 96360; 99285; A9270; J7030; J7040; J7050; Q9967; 99284

== ENCOUNTER 2017-09-14 21:22 | Emergency (ER) | payer MEDICARE, MEDICAID ==
[2017-09-14 21:45] VITALS: BP 140/74
[2017-09-14] MEDS ORDERED: Ketorolac 60 MG/2 ML SDV IM ONE (22:04)
[2017-09-14] MEDS ORDERED: Acetaminophen/HYDROcodone 325-5 MG Tab PO ONE (22:46)
--- NOTE | 2017-09-14 22:52 | EDM.PDOC ---
ED HPI GENERAL MEDICAL PROBLEM - General Chief Complaint: Upper Extremity Injury/Pain Stated Complaint: SHOULDER PAIN Time Seen by Provider: 09/14/17 21:59 Source of Information: Reports: Patient History Limitations: Reports: No Limitations - History of Present Illness INITIAL COMMENTS - FREE TEXT/NARRATIVE: The patient presents with right shoulder pain. This started about 3 days ago. He does not remember injuring it in any way. He did have surgery on his right shoulder a few years ago. He has pain to the anterior shoulder. He has no fever, chills, cough, chest pain, shortness of breath or abdominal pain. Onset: Gradual Duration: Day(s): (3) Location: Reports: Upper Extremity, Right (Shoulder) Quality: Reports: Sharp Severity: Moderate Improves with: Reports: Immobilization Worsens with: Reports: Movement Associated Symptoms: Reports: No Other Symptoms Treatments SOFTWARE ENGINEER KERNEL: Reports: Other (see below) Other Treatments SOFTWARE ENGINEER KERNEL: ice Right Shoulder Pain Score (Numeric/FACES): 9 - Related Data Allergies Allergy/AdvReac Type Severity Reaction Status Date / Time No Known Allergies Allergy Verified 06/25/17 16:23 Home Meds: Home Meds Rosuvastatin [Crestor] 10 mg PO DAILY 07/04/15 [History] Lisinopril/Hydrochlorothiazide [Lisinopril-Hctz 20-25 mg Tab] 1 tab PO DAILY [History] Albuterol [Ventolin HFA] 1 - 2 puff INH Q6H PRN 06/06/17 [History] DULoxetine [Cymbalta] 60 mg PO DAILY 06/06/17 [History] Escitalopram [Lexapro] 20 mg PO DAILY 06/06/17 [History] Fish Oil/[place]-3 Fatty Acids [Fish Oil 1,000 MG] 2 g PO DAILY 06/06/17 [History] Multivitamin [Poly-Vitamin] 1 tab PO DAILY 06/06/17 [History] Pramipexole Di-HCl [Mirapex] 0.25 mg PO BEDTIME 06/06/17 [History] traZODone HCl [Trazodone HCl] 100 mg PO BEDTIME 06/06/17 [History] Cetirizine HCl [Zyrtec] 10 mg PO DAILY 06/25/17 [History] Aspirin [Halfprin] 81 mg PO DAILY 09/14/17 [History] Hydrocodone/Acetaminophen [Hydrocodon-Acetaminophen 5-325] 1 - 2 each PO Q6HR PRN #20 tablet 09/14/17 [Rx] Past Medical History HEENT History: Reports: Impaired Vision Other HEENT History: bilateral impacted cerumen, hearing loss, weras glasses, has hearing aids Cardiovascular History: Reports: High Cholesterol, Hypertension Respiratory History: Reports: Asthma Gastrointestinal History: Reports: None Genitourinary History: Reports: None 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 cannot remember - Past Surgical History Head Surgeries/Procedures: Reports: None Cardiovascular Surgical History: Reports: None GI Surgical History: Reports: Colonoscopy Male Surgical History: Reports: None Endocrine Surgical History: Reports: None Neurological Surgical History: Reports: None Musculoskeletal Surgical History: Reports: Hip Replacement, Knee Replacement Oncologic Surgical History: Reports: None Social & Family History - Family History Family Medical History: Noncontributory - Tobacco Use Smoking Status *Q: Never Smoker Years of Tobacco use: 2 Packs/Tins Daily: 2.5 Used Tobacco, but Quit: Yes Month/Year Tobacco Last Used: many years ago per pt report Second Hand Smoke Exposure: No - Caffeine Use Caffeine Use: Reports: Coffee, Energy Drinks - Recreational Drug Use Recreational Drug Use: No Recreational Drug Use Frequency: Rarely - Living Situation & Occupation Living situation: Reports: Occupation: Unemployed Review of Systems - Review of Systems Review Of Systems: See Below Constitutional: Reports: No Symptoms Eyes: Reports: No Symptoms Ears: Reports: No Symptoms Nose: Reports: No Symptoms Mouth/Throat: Reports: No Symptoms Respiratory: Reports: No Symptoms Cardiovascular: Reports: No Symptoms GI/Abdominal: Reports: No Symptoms Genitourinary: Reports: No Symptoms Musculoskeletal: Reports: Shoulder Pain (Right) ED EXAM, GENERAL - Physical Exam Exam: See Below Exam Limited By: No Limitations General Appearance: Alert, No Apparent Distress Ears: Normal External Exam Nose: Normal Inspection Head: Atraumatic, Normocephalic Neck: Normal Inspection Respiratory/Chest: No Respiratory Distress, Lungs Clear, Normal Breath Sounds Cardiovascular: Regular Rate, Rhythm, No Edema, No Murmur GI/Abdominal: Soft, Non-Tender, No Organomegaly, No Mass Back Exam: Normal Inspection Extremities: Other (Pain upon palpation to the right anterior shoulder. Good sensation and pulses distally.) Neurological: Alert, Oriented, No Motor/Sensory Deficits Course - Vital Signs Last Recorded V/S: Last Vital Signs Temp 98.2 F 09/14/17 21:44 Pulse 89 09/14/17 21:44 Resp 20 09/14/17 21:44 BP 140/74 09/14/17 21:44 Pulse Ox 97 09/14/17 21:44 - Orders/Labs/Meds Orders: Active Orders 24 hr Category Date Time Status Shoulder Comp Rt [CR] Stat Exams 09/14/17 22:04 Taken Meds: Medications Discontinued Medications Generic Name Dose Route Start Last Admin Trade Name Sandra PRN Reason Stop Dose Admin Ketorolac Tromethamine 60 mg 09/14/17 22:04 09/14/17 22:08 Toradol IM 09/14/17 22:05 60 mg ONETIME ONE Administration - Re-Assessments/Exams Free Text/Narrative Re-Assessment/Exam: 09/14/17 22:54 I ordered toradol 60mg IM. His x-ray shows nothing acute. I will discharge him home with some hydrocodone and follow up with Dr Smith. Departure - Departure Time of Disposition: 23:00 Disposition: Home, Self-Care 01 Condition: Good Clinical Impression: Shoulder pain, right Qualifiers: Chronicity: acute Qualified Code(s): M25.511 - Pain in right shoulder - Discharge Information Prescriptions: Hydrocodone/Acetaminophen [Hydrocodon-Acetaminophen 5-325] 1 - 2 each PO Q6HR PRN #20 tablet PRN Reason: Pain Referrals: Alyse Espinal NP [Primary Care Provider] - Manjinder Smith MD [Physician] - 1 Week Additional Instructions: Ice your shoulder for 15 minutes 3 times per day for 2 days. Take motrin or aleve for pain. You can also take some hydrocodone for pain. If you take the hydrocodone it can make you constipated so drink plenty of fluids and take a stool softener such as colace. Follow up with Dr Smith within the week. Please return if you are worse. - My Orders Last 24 Hours: My Active Orders 09/14/17 22:04 Shoulder Comp Rt [CR] Stat - Assessment/Plan Last 24 Hours: My Active Orders 09/14/17 22:04 Shoulder Comp Rt [CR] Stat
--- NOTE | 2017-09-15 10:01 | CR ---
Right shoulder: Three views of the right shoulder were obtained. Comparison: Prior right shoulder exam of 06/20/10. Surgical anchors are seen within the humeral head as an interval change from previous exam. Small inferior acromioclavicular spur that was seen on prior study is not identified currently. Glenohumeral joint appears within normal limits. No fracture or other bony abnormality is seen. Impression: 1. Interval surgery from previous shoulder study. 2. Nothing acute is identified on right shoulder exam. Diagnostic code #2
== END 2017-09-14 23:17 | disposition home or self-care (01) ==
LOC: JD.ED 21:22
DX: M25.511 Pain in right shoulder (principal); E78.00 Pure hypercholesterolemia, unspecified; I10 Essential (primary) hypertension; J45.909 Unspecified asthma, uncomplicated; F32.9 Major depressive disorder, single episode, unspecified; F41.9 Anxiety disorder, unspecified; Z79.82 Long term (current) use of aspirin; Z79.899 Other long term (current) drug therapy
CPT/HCPCS: 73030; 96372; 99283; A9270; J1885

== ENCOUNTER 2019-07-30 08:01 | Emergency (ER) | payer MEDICARE, MEDICAID ==
[2019-07-30 08:54] VITALS: BP 149/105; PULSE 116
--- NOTE | 2019-07-30 09:26 | EDM.PDOC ---
<Madeline Grey - Last Filed: 07/30/19 09:29> ED HPI GENERAL MEDICAL PROBLEM - General Chief Complaint: ENT Problem Stated Complaint: SORE THROAT Time Seen by Provider: 07/30/19 09:09 Source of Information: Reports: Patient History Limitations: Reports: No Limitations - History of Present Illness INITIAL COMMENTS - FREE TEXT/NARRATIVE: 59-year-old male presents with sore throat that started Friday. He states that the throat pain is worse when it is dry and describes it as a burning sensation. He also states that he has a headache, chills, and his left ear hurts when he coughs. The patient has tried OTC cough and cold medications with no relief. He has found some relief with throat losenges and keeping his throat moist. He denies nausea/vomiting, changes to his stool, fever, and body aches. Onset: Other (Friday) Duration: Getting Worse Location: Reports: Neck Quality: Reports: Burning Severity: Mild Improves with: Reports: Other (liquids) Worsens with: Reports: Other (coughing) Associated Symptoms: Reports: Cough (mild, occasional), Headaches, Other (left ear pain). Denies: Fever/Chills, Nausea/Vomiting, Shortness of Breath Treatments PROGRAMS DIRECTOR: Reports: Home Treatments (OTC cough and cold medicine, throat losenges ) Throat Pain Score (Numeric/FACES): 8 - Related Data Allergies Allergy/AdvReac Type Severity Reaction Status Date / Time No Known Allergies Allergy Verified 07/30/19 08:54 Home Meds: Home Meds Rosuvastatin [Crestor] 10 mg PO DAILY 07/04/15 [History] Lisinopril/Hydrochlorothiazide [Lisinopril-Hctz 20-25 mg Tab] 1 tab PO DAILY [History] Albuterol [Ventolin HFA] 1 - 2 puff INH Q6H PRN 06/06/17 [History] DULoxetine [Cymbalta] 60 mg PO DAILY 06/06/17 [History] Escitalopram [Lexapro] 20 mg PO DAILY 06/06/17 [History] Fish Oil/[place]-3 Fatty Acids [Fish Oil 1,000 MG] 2 g PO DAILY 06/06/17 [History] Multivitamin [Poly-Vitamin] 1 tab PO DAILY 06/06/17 [History] Pramipexole Di-HCl [Mirapex] 0.25 mg PO BEDTIME 06/06/17 [History] traZODone HCl [Trazodone HCl] 100 mg PO BEDTIME 06/06/17 [History] Cetirizine HCl [Zyrtec] 10 mg PO DAILY 06/25/17 [History] Aspirin [Halfprin] 81 mg PO DAILY 09/14/17 [History] Hydrocodone/Acetaminophen [Hydrocodon-Acetaminophen 5-325] 1 - 2 each PO Q6HR PRN #20 tablet 09/14/17 [Rx] Past Medical History HEENT History: Reports: Impaired Vision Other HEENT History: bilateral impacted cerumen, hearing loss, weras glasses, has hearing aids Cardiovascular History: Reports: High Cholesterol, Hypertension Respiratory History: Reports: Asthma Gastrointestinal History: Reports: None Genitourinary History: Reports: None 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 cannot remember - Past Surgical History Head Surgeries/Procedures: Reports: None Cardiovascular Surgical History: Reports: None GI Surgical History: Reports: Colonoscopy Male Surgical History: Reports: None Endocrine Surgical History: Reports: None Neurological Surgical History: Reports: None Musculoskeletal Surgical History: Reports: Hip Replacement, Knee Replacement Oncologic Surgical History: Reports: None Social & Family History - Family History Family Medical History: Noncontributory - Tobacco Use Smoking Status *Q: Never Smoker - Caffeine Use Caffeine Use: Reports: Coffee, Energy Drinks - Recreational Drug Use Recreational Drug Use: No - Living Situation & Occupation Living situation: Reports: Occupation: Unemployed ED ROS ENT - Review of Systems Review Of Systems: See Below Constitutional: Reports: Chills. Denies: Fever, Fatigue HEENT: Reports: Ear Pain (left ear when coughing), Throat Pain. Denies: Ear Discharge, Sinus Problem, Throat Swelling Respiratory: Reports: Cough (occasional, mild). Denies: Shortness of Breath, Sputum Cardiovascular: Reports: No Symptoms GI/Abdominal: Reports: No Symptoms : Reports: No Symptoms Musculoskeletal: Reports: No Symptoms Skin: Reports: No Symptoms Neurological: Reports: Headache. Denies: Dizziness, Trouble Speaking Psychiatric: Reports: No Symptoms Hematologic/Lymphatic: Reports: No Symptoms Immunologic: Reports: No Symptoms ED EXAM, ENT - Physical Exam Exam: See Below Exam Limited By: No Limitations General Appearance: Alert, WD/WN, No Apparent Distress Ears: Normal External Exam, Normal Canal, Hearing Grossly Normal, Normal TMs Nose: Normal Inspection, Normal Mucousa, No Blood Mouth/Throat: Normal Gums, Normal Lips, Throat Pain, Other (erythematous oropharynx, white patches on sides of tongue (patient states its chronic)). No : Normal Teeth (yellow, some missing, chipped ), Dental Pain, Oral Ulcers, Throat Swelling Head: Atraumatic, Normocephalic Neck: Normal Inspection, Supple, Non-Tender, Full Range of Motion. No: Lymphadenopathy (L), Lymphadenopathy (R) Respiratory/Chest: No Respiratory Distress, Lungs Clear, Normal Breath Sounds, No Accessory Muscle Use, Chest Non-Tender Cardiovascular: Normal Peripheral Pulses, Regular Rate, Rhythm, No Murmur Neurological: Alert, Oriented, Normal Cognition Psychiatric: Normal Affect, Normal Mood Skin: Warm, Dry, Intact, Normal Color, No Rash Lymphatic: No Adenopathy Course - Vital Signs Last Recorded V/S: Last Vital Signs Temp 98.7 F 07/30/19 08:52 Pulse 116 H 07/30/19 08:52 Resp 16 07/30/19 08:52 BP 149/105 H 07/30/19 08:52 Pulse Ox 96 07/30/19 08:52 - Orders/Labs/Meds Orders: Active Orders 24 hr Category Date Time Status CULTURE STREP A CONFIRMATION [] Stat Lab 07/30/19 09:51 Results STREP SCRN A RAPID W CULT CONF [] Stat Lab 07/30/19 09:51 Results Departure - Departure Disposition: Home, Self-Care 01 Clinical Impression: Viral URI - Discharge Information Referrals: Alyse Espinal, GROUP EXERCISE CLASS INSTRUCTOR [Primary Care Provider] - 1 Week Forms: ED Department Discharge Additional Instructions: Drink plenty of fluids. Take tylenol or motrin for pain. Try some over the counter cold preparations. Please return if you are worse. Sepsis Event Note - Evaluation Sepsis Screening Result: No Definite Risk - Focused Exam Vital Signs: Vital Signs Temp Pulse Resp BP Pulse Ox 07/30/19 08:52 98.7 F 116 H 16 149/105 H 96 Date Exam was Performed: 07/30/19 Time Exam was Performed: 09:29 - My Orders Last 24 Hours: My Active Orders 07/30/19 09:51 CULTURE STREP A CONFIRMATION [RM] Stat STREP SCRN A RAPID W CULT CONF [RM] Stat - Assessment/Plan Last 24 Hours: My Active Orders 07/30/19 09:51 CULTURE STREP A CONFIRMATION [RM] Stat STREP SCRN A RAPID W CULT CONF [RM] Stat <Jeffrey Lombardo - Last Filed: 07/30/19 11:04> Course - Re-Assessments/Exams Free Text/Narrative Re-Assessment/Exam: 07/30/19 11:02 I examined the patient myself and I agree with Madeline's assessment and plan. The rapid strep is negative. This is a viral URI. Departure - Departure Time of Disposition: 11:05 Condition: Good - Discharge Information *PRESCRIPTION DRUG MONITORING PROGRAM REVIEWED*: Not Applicable *COPY OF PRESCRIPTION DRUG MONITORING REPORT IN PATIENT TOPHER: Not Applicable Sepsis Event Note - Focused Exam Date Exam was Performed: 07/30/19 Time Exam was Performed: 11:01
== END 2019-07-30 11:25 | disposition home or self-care (01) ==
LOC: JD.ED 08:01
DX: J06.9 Acute upper respiratory infection, unspecified (principal); E78.00 Pure hypercholesterolemia, unspecified; I10 Essential (primary) hypertension; F32.9 Major depressive disorder, single episode, unspecified; F41.9 Anxiety disorder, unspecified; J45.909 Unspecified asthma, uncomplicated; Z79.899 Other long term (current) drug therapy; Z79.82 Long term (current) use of aspirin
CPT/HCPCS: 87081; 87430; 99281; 99283

== ENCOUNTER 2021-09-13 07:00 | Day surgery (SDC) | payer MEDICARE, MEDICAID ==
[~2021-09-13 07:00] MED LIST changes: -Bisacodyl 5 MG Tab PO PRN; -Cyclobenzaprine 10 MG Tab PO PRN; -Ketorolac 15 MG/ML SDV IVPUSH PRN; +Lidocaine 1%/Sod Bicarbonate in NS 8.4% 1 ML Syringe IDERM PRN; -Lidocaine 1%/Sod Bicarbonate in NS 8.4% 1 ML Syringe IV PRN; -Magnesium Hydroxide 400 MG/5 ML Susp 30 ML Cup PO PRN; -Morphine 2 MG/ML Syringe IVPUSH PRN; -Naloxone 0.4 MG/ML SDV IVPUSH PRN; -Ondansetron 4 MG/2 ML SDV IVPUSH PRN; -Sennosides 8.6 MG Tab PO PRN; +Sodium Chloride 0.9% 10 ML Syringe FLUSH SCH; -diphenhydrAMINE 50 MG/ML SDV IVPUSH PRN
[2021-09-13] MEDS ORDERED: Propofol 200 MG/20 ML SDV ONE ×2 (07:01→08:22)
[2021-09-13] MEDS ORDERED: Lidocaine 1% 4 ML ONE (07:01)
[2021-09-13 09:26] VITALS: BP 128/82; PULSE 77
== END 2021-09-13 09:20 | disposition home or self-care (01) ==
LOC: JD.SDS 07:00
PROVIDERS: ATTEND Surgery
DX: Z12.11 Encounter for screening for malignant neoplasm of colon (principal); K63.5 Polyp of colon; K64.4 Residual hemorrhoidal skin tags; F41.9 Anxiety disorder, unspecified; F32.A Depression, unspecified; I10 Essential (primary) hypertension; E78.00 Pure hypercholesterolemia, unspecified; E66.9 Obesity, unspecified; J45.20 Mild intermittent asthma, uncomplicated; G47.00 Insomnia, unspecified; G47.30 Sleep apnea, unspecified; Z79.899 Other long term (current) drug therapy; Z79.82 Long term (current) use of aspirin; Z98.890 Other specified postprocedural states; Z87.891 Personal history of nicotine dependence
CPT/HCPCS: 45380; J2704; J7120; 00812; 88305

== ENCOUNTER 2024-03-14 01:56 | Emergency (ER) | payer MEDICARE, MEDICAID ==
[2024-03-14] MEDS: Acetaminophen/HYDROcodone 325-5 MG Tab PO ONE (03:08)
[2024-03-14 03:14] LABS: BASOPHILS PERCENT AUTO 0.3 % (0.0-1.0); EOSINOPHILS ABSOLUTE AUTO 0.2 K/mm3 (0.0-0.4); EOSINOPHILS PERCENT AUTO 1.5 % (0.0-6.0); HEMATOCRIT 42.8 % (42.0-52.0); HEMOGLOBIN 14.7 gm/dl (14.0-18.0); IMMATURE GRAN ABSOLUTE AUTO 0.06 K/mm3 (0.00-0.05); IMMATURE GRAN PERCENT AUTO 0.4 % (0.0-0.4); MEAN CORPUSCULAR HEMOGLOBIN 29.7 pg (28.0-32.0); MEAN CORPUSCULAR HGB CONC 34.3 g/dl (32.0-36.0); MEAN CORPUSCULAR VOLUME 86.5 fl (83.0-99.0); MEAN PLATELET VOLUME 8.3 fl (9.4-12.4); MONOCYTES ABSOLUTE AUTO 1.1 K/mm3 (0.0-0.8); MONOCYTES PERCENT AUTO 8.5 % (0.0-8.0); NEUTROPHILS PERCENT AUTO 74.3 % (41.0-71.0); PLATELET COUNT,PLT 279 K/mm3 (150-400); RED BLOOD CELL COUNT 4.95 M/mm3 (4.52-5.90); WHITE BLOOD CELL COUNT,WBC 13.48 K/mm3 (3.9-11.3)
[2024-03-14 03:35] LABS: A/G RATIO 1.1 (1-2); ALBUMIN 3.6 g/dl (3.4-5.0); ANION GAP 12.3 (5-15); BILIRUBIN TOTAL 1.2 mg/dL (0.2-1.0); BUN/CREATININE RATIO 23.3 (14-18); C-REACTIVE PROTEIN 0.45 mg/dL (<0.30); CALCIUM 9.1 mg/dL (8.5-10.1); CREATININE 0.9 mg/dL (0.7-1.3); EST CRCL DRUG DOSING (CG) 93.41 mL/min; POTASSIUM,K 3.3 mEq/L (3.5-5.1); PROTEIN TOTAL,TP 6.9 g/dl (6.4-8.2)
[2024-03-14] MEDS: Ketorolac 60 MG/2 ML SDV IM ONE (04:02)
[2024-03-14 04:06] VITALS: BP 129/78; PULSE 89
== END 2024-03-14 04:07 | disposition home or self-care (01) ==
LOC: JD.ED 01:56
DX: M25.552 Pain in left hip (principal); E78.00 Pure hypercholesterolemia, unspecified; I10 Essential (primary) hypertension; J45.909 Unspecified asthma, uncomplicated; M19.90 Unspecified osteoarthritis, unspecified site; Z79.82 Long term (current) use of aspirin; Z79.899 Other long term (current) drug therapy; Z75.8 Other problems related to medical facilities and other health care
CPT/HCPCS: 36415; 73502; 80053; 85025; 85652; 86140; 96372; 99283; A9270; J1885

== ENCOUNTER 2024-04-07 06:00 | Day surgery (SDC) | payer MEDICARE, MEDICAID ==
[2024-04-07] MEDS ORDERED: Lactated Ringers 1,000 ML IV ONE (06:01)
[2024-04-07] MEDS ORDERED: Lidocaine 1% PF 2 ML SDV ONE ×2 (06:29)
[2024-04-07] MEDS ORDERED: Midazolam 1 MG/ML 2 ML SDV ONE (06:29)
[2024-04-07] MEDS ORDERED: fentaNYL 100 MCG/2 ML SDV ONE (06:29)
[2024-04-07] MEDS ORDERED: ceFAZolin 2 GM Vial ONE (06:29)
[2024-04-07] MEDS ORDERED: Lidocaine 1% 4 ML ONE (06:29)
[2024-04-07] MEDS ORDERED: Propofol 200 MG/20 ML SDV ONE (06:29)
[2024-04-07] MEDS ORDERED: Bupivacaine 0.25% 10 ML SDV ONE (06:36)
[2024-04-07] MEDS ORDERED: Ondansetron 4 MG/2 ML SDV ONE (07:10)
[2024-04-07] MEDS ORDERED: Dexamethasone 4 MG/ML 5 ML MDV ONE (07:10)
[2024-04-07] MEDS ORDERED: Phenylephrine 1% 10 MG/ML SDV ONE (07:17)
[2024-04-07] MEDS: Bupivacaine 0.25% 10 ML SDV ONE (07:45)
[2024-04-07] MEDS: Lidocaine 1% 10 ML MDV ONE (07:45)
[2024-04-07] MEDS ORDERED: Ondansetron 4 MG/2 ML SDV IVPUSH PRN (08:02)
[2024-04-07] MEDS ORDERED: fentaNYL 100 MCG/2 ML SDV IVPUSH PRN (08:02)
[2024-04-07] MEDS ORDERED: HYDROmorphone 0.5 MG/0.5 ML Syringe IVPUSH PRN (08:02)
[2024-04-07 09:24] VITALS: BP 123/70; PULSE 72
[2024-04-08] MEDS ORDERED: Lactated Ringers 1,000 ML IV SCH (06:00)
[2024-04-08] MEDS ORDERED: Sodium Chloride 0.9% 10 ML Syringe FLUSH PRN (06:00)
[2024-04-08] MEDS ORDERED: Sodium Chloride 0.9% 10 ML Syringe FLUSH SCH (09:00)
== END 2024-04-07 09:30 | disposition home or self-care (01) ==
LOC: JD.SDS 06:00
PROVIDERS: ATTEND Orthopaedic Surgery
DX: G56.22 Lesion of ulnar nerve, left upper limb (principal); G56.12 Other lesions of median nerve, left upper limb; I10 Essential (primary) hypertension; F32.A Depression, unspecified; J45.20 Mild intermittent asthma, uncomplicated; E78.00 Pure hypercholesterolemia, unspecified; E66.9 Obesity, unspecified; Z68.35 Body mass index [BMI] 35.0-35.9, adult; Z87.891 Personal history of nicotine dependence; Z79.82 Long term (current) use of aspirin; Z79.899 Other long term (current) drug therapy
CPT/HCPCS: 64721; J0665; J0690; J1100; J2250; J2371; J2405; J2704; J3010; J7120; 01810; J3490

== ENCOUNTER → 2024-05-19 | Day surgery (SDC) | payer MEDICARE, MEDICAID ==
[~2024-05-19] MED LIST changes: +HYDROmorphone 0.5 MG/0.5 ML Syringe IVPUSH PRN; -Lactated Ringers 1,000 ML IV SCH; -Lidocaine 1%/Sod Bicarbonate in NS 8.4% 1 ML Syringe IDERM PRN; +Midazolam 1 MG/ML 2 ML SDV ONE; +Ondansetron 4 MG/2 ML SDV IVPUSH PRN; +Ondansetron 4 MG/2 ML SDV ONE; +Phenylephrine 1% 10 MG/ML SDV ONE; +Propofol 200 MG/20 ML SDV ONE; +ceFAZolin 2 GM Vial ONE
[2024-05-19] MEDS: Lactated Ringers 1,000 ML IV SCH (06:15)
[2024-05-19] MEDS: Pregabalin 25 MG Cap PO SCH (06:45)
[2024-05-19] MEDS: Acetaminophen 325 MG Tab PO SCH (06:45)
[2024-05-19] MEDS: oxyCODONE ER 10 MG TAB.ER PO SCH (06:45)
[2024-05-19] MEDS: Morphine 8 MG, EPINEPHrine 0.3 MG, Cefuroxime 750 MG, Ketorolac 30 MG, Sodium Chloride ... PRN (08:11)
[2024-05-19] MEDS: Vancomycin 1 GM SDV ONE (08:11)
[2024-05-19] MEDS: Tranexamic Acid 1,000 MG/10 ML Vial ONE (08:11)
[2024-05-19] MEDS: fentaNYL 100 MCG/2 ML SDV IVPUSH PRN (09:20)
[2024-05-19] MEDS: oxyCODONE 5 MG Tab PO ONE (10:55)
[2024-05-19 13:54] VITALS: BP 117/74; PULSE 98
== END | disposition home or self-care (01) ==
LOC: JD.SDS 06:00
PROVIDERS: ATTEND Orthopaedic Surgery
DX: M16.12 Unilateral primary osteoarthritis, left hip (principal); E66.9 Obesity, unspecified; Z87.891 Personal history of nicotine dependence; Z79.82 Long term (current) use of aspirin; Z79.899 Other long term (current) drug therapy; Z79.2 Long term (current) use of antibiotics; Z86.16 Personal history of COVID-19; Z68.32 Body mass index [BMI] 32.0-32.9, adult
CPT/HCPCS: 0055T; 27130; 73501; 97110; 97161; A9270; J0171; J0690; J0697; J1885; J2250; J2272; J2371; J2405; J2704; J3010; J7120; J3490

== ENCOUNTER 2024-06-03 11:29 | Emergency (ER) | payer MEDICARE, MEDICAID ==
[2024-06-03 12:15] LABS: BASOPHILS PERCENT AUTO 0.2 % (0.0-1.0); EOSINOPHILS ABSOLUTE AUTO 0.1 K/mm3 (0.0-0.4); HEMATOCRIT 40.2 % (42.0-52.0); HEMOGLOBIN 13.5 gm/dl (14.0-18.0); IMMATURE GRAN ABSOLUTE AUTO 0.07 K/mm3 (0.00-0.05); IMMATURE GRAN PERCENT AUTO 0.6 % (0.0-0.4); LYMPHOCYTES ABSOLUTE AUTO 1.6 K/mm3 (1.0-4.8); MEAN CORPUSCULAR HGB CONC 33.6 g/dl (32.0-36.0); MEAN CORPUSCULAR VOLUME 86.3 fl (83.0-99.0); MEAN PLATELET VOLUME 8.3 fl (9.4-12.4); MONOCYTES ABSOLUTE AUTO 0.6 K/mm3 (0.0-0.8); MONOCYTES PERCENT AUTO 4.7 % (0.0-8.0); NEUTROPHILS ABSOLUTE AUTO 9.7 K/mm3 (1.8-7.7); NEUTROPHILS PERCENT AUTO 80.5 % (41.0-71.0); PLATELET COUNT,PLT 462 K/mm3 (150-400); RED BLOOD CELL COUNT 4.66 M/mm3 (4.52-5.90); WHITE BLOOD CELL COUNT,WBC 12.08 K/mm3 (3.9-11.3)
[2024-06-03 12:24] LABS: A/G RATIO 0.8 (1-2); ALANINE AMINOTRANSFERASE,ALT 25 U/L (16-63); ALBUMIN 3.5 g/dl (3.4-5.0); ALKALINE PHOSPHATASE 153 U/L (46-116); ANION GAP 15.4 (5-15); ASPARTATE AMNIOTRANSFERASE,AST 15 U/L (15-37); BILIRUBIN TOTAL 1.4 mg/dL (0.2-1.0); BLOOD UREA NITROGEN,BUN 18 mg/dL (7-18); BUN/CREATININE RATIO 22.5 (14-18); CALCIUM 9.5 mg/dL (8.5-10.1); CARBON DIOXIDE,CO2 24 mEq/L (21-32); CHLORIDE,CL 102 mEq/L (98-107); CREATININE 0.8 mg/dL (0.7-1.3); ESTIMATED GFR 100 mL/min (>60); GLUCOSE RANDOM 95 mg/dL (70-99); INR 1.02; POTASSIUM,K 3.4 mEq/L (3.5-5.1); PROTEIN TOTAL,TP 7.7 g/dl (6.4-8.2); PROTHROMBIN TIME 10.8 SECONDS (9.7-12.0); SODIUM,NA 138 mEq/L (136-145); TROPONIN I HIGH SENSITIVITY 4 pg/mL (<=76)
[2024-06-03 12:36] LABS: D-DIMER QUANTITATIVE 13.67 mg/L (0.19-0.50)
[2024-06-03] MEDS: Sodium Chloride 0.9% 100 ML IV SCH (13:31)
[2024-06-03] MEDS: Sodium Chloride 0.9% 10 ML Syringe FLUSH PRN (13:31)
[2024-06-03] MEDS: Iopamidol 755 Mg/ML 100 ML Bottle IVPUSH ONE (13:32)
[2024-06-03] MEDS: Acetaminophen 325 MG Tab PO ONE (14:37)
[2024-06-03 15:49] VITALS: BP 125/75; PULSE 102
== END 2024-06-03 15:07 | disposition home or self-care (01) ==
LOC: JD.ED 11:29
DX: R60.0 Localized edema (principal); I10 Essential (primary) hypertension; E78.00 Pure hypercholesterolemia, unspecified; Z79.899 Other long term (current) drug therapy
CPT/HCPCS: 36415; 71045; 71275; 80053; 84484; 85025; 85379; 85610; 93005; 99285; A9270; J3490; Q9967; 93010; 99284